=== PATIENT | female | born 1945 | race Caucasian/White ===

== ENCOUNTER 2019-05-31 09:10 | Outpatient (CLI) | payer MEDICARE, SELFPAY ==
[2019-05-31 17:24] LABS: Add Urine Microscopic? YES; Appearance Urine Clear (Clear); Bilirubin Urine Negative (Negative); Blood Urine Negative (Negative); Color Urine Yellow (Yellow); Glucose Urine UA Negative (Negative); Ketones Urine Negative (Negative); Leukocyte Esterase Ur 1+ LEU/UL (NEGATIVE); Mucus Urine Rare /lpf; Nitrate Urine Negative (Negative); Protein Urine Negative (Negative); RBC Urine 0-2 /hpf (0-2); Specific Grav Ur 1.013 (1.001-1.035); Squamous Epithelial Cell Urine Moderate /hpf (Few); Urobilinogen Urine Negative mg/dL (<2.0); WBC Urine 0-3 /hpf (0-3)
[2019-05-31 17:29] LABS: Alanine Aminotransferase 24 U/L (4-35); Albumin Level 4.1 g/dL (3.5-5.1); Alkaline Phosphatase 68 U/L (38-126); Aspartate Amino Transferase 29 U/L (14-36); Bilirubin,Total 0.8 mg/dL (0.2-1.3); Blood Urea Nitrogen 14 mg/dL (7-17); Calcium 9.6 mg/dL (8.4-10.2); Carbon Dioxide 24 mmol/L (22-30); Chloride 102 mmol/L (98-107); Cholesterol 171 mg/dL (0-200); Estimated Glomerular Filt Rate 54; Glucose 103 mg/dL (65-105); HDL Direct 54 mg/dL; Magnesium 2.1 mg/dL (1.6-2.3); Phosphorus 3.3 mg/dL (2.5-4.5); Potassium 4.1 mmol/L (3.4-5.0); Sodium 137 mmol/L (137-145); Triglycerides 143 mg/dL (<150)
[2019-05-31 17:40] LABS: LDL Cholesterol Direct 90 mg/dL
[2019-05-31 17:57] LABS: Microalbumin Urine Random 7.3 mg/L (0-16.7)
[2019-05-31 17:59] LABS: Creatinine Urine 166.6 mg/dL; MALB Creatinine Ratio 4.4 mg/g (0-30)
[2019-05-31 18:16] LABS: Hemoglobin A1C 5.9 % (<5.7)
[2019-06-02 21:43] LABS: SS-A <1.0; SS-B <1.0
[2019-06-03 08:44] LABS: RNP Antibodies <1.0
== END 2019-05-31 09:11 | disposition home or self-care (01) ==
PROVIDERS: PCP Family Medicine; Visit Provider Internal Medicine Nephrology
DX: E78.5 Hyperlipidemia, unspecified (principal); N39.0 Urinary tract infection, site not specified; E11.9 Type 2 diabetes mellitus without complications; E55.9 Vitamin D deficiency, unspecified; N18.3 Chronic kidney disease, stage 3 (moderate); M19.90 Unspecified osteoarthritis, unspecified site; Z99.11 Dependence on respirator [ventilator] status
CPT/HCPCS: 36415; 80053; 80061; 81001; 82043; 82306; 83036; 83735; 84100; 86235

== ENCOUNTER 2020-11-13 10:10 | Outpatient (CLI) | payer MEDICARE, SELFPAY ==
--- NOTE | ~2020-11-13 | XR_ITS ---
XR chest 2V 11/13/2020 10:23 Indication: Shortness of breath with exertion. Procedure: 2 view chest Comparison: 07/31/2018 Findings: Basilar atelectasis. Elevated right diaphragm. There are cholecystectomy clips. No signific ant effusion, focal pneumonia or pneumothorax. Impression: 1: Chronic elevation of the right diaphragm with right basilar atelectasis. Reviewed, dictated and finalized at location A. Impression: 1: Chronic elevation of the right diaphragm with right basilar atelectasis.
== END 2020-11-13 10:11 | disposition home or self-care (01) ==
LOC: ANHIMG 10:12
PROVIDERS: PCP Family Medicine; Visit Provider Nurse Practitioner Family
DX: R06.02 Shortness of breath (principal); R91.8 Other nonspecific abnormal finding of lung field
CPT/HCPCS: 71046

== ENCOUNTER 2020-12-11 10:07 | Outpatient (CLI) | payer MEDICARE, OTHER, SELFPAY ==
--- NOTE | 2020-12-11 12:35 | WPDPFTINT ---
PFT Procedure Performed PFT Procedure Performed Spirometry with Pre/Post Bronchodilator Plethysmography (Lung Vol) Diffusing Cap (DLCO) Flow Vol Loop PFT Interpretation This is a pulmonary function test with pre and post-bronchodilator spirometry, plethysmography and diffusing capacity. The test was performed and results interpreted in accordance with the 2019 and 2005 ATS/ERS Task Force guidelines respectively using the Global Lung Function Initiative-2012 reference equations. Patient demonstrated good effort and cooperation. Reproducibility criteria were met. The quality of the pre bronchodilator spirometry maneuver was Grade A and post bronchodilator spirometry maneuver was Grade A. Findings: Spirometry:The contour of the inspiratory and expiratory flow tracing are normal. The pre bronchodilator FVC is 2.43 L, 92% predicted. The pre bronchodilator FEV1 is 1.89 L, 93% predicted. The FEV1: FVC ratio 78%. The post bronchodilator FVC is 2.45 L, representing 1% increase. The post bronchodilator FEV1 is 1.92 L, representing 1% increased. Plethysmography: The total lung capacity is 3.99 L, 79% predicted. The functional residual capacity is 1.93 L, 66% predicted. The residual volume is 1.56 L, 67% predicted. Diffusing capacity: The absolute diffusion capacity is 16.2, 82% predicted. The diffusing capacity corrected for alveolar volume is 4.72, 113% predicted. Impression: There is a mild restrictive ventilatory abnormality with a normal FEV1. The spirometry is normal without evidence of an obstructive abnormality. There is no significant improvement after inhaling a single dose of albuterol. The diffusing capacity is normal. There are no prior studies for comparison
--- NOTE | 2020-12-11 12:40 | WPDSIXMINUTE ---
Six Minute Walk Procedure Procedure Performed Pulmonary Stress Test (6 min walk) Six Minute Walk This is a 6 minute walk test. The test was performed and interpreted in accordance with the 2014 ERS/ATS task force guidelines. Findings: The patient's resting room air oxygen saturation measured by pulse oximetry was 98% and her heart rate was 91 bpm. Patient ambulated for 427 meters and oxygen saturation remained 94 to 100%. Heart rate at the end of the study was 116 bpm. The patient did not qualify for supplemental oxygen at rest or with ambulation. There are no prior studies for comparison.
== END 2020-12-11 10:08 | disposition home or self-care (01) ==
PROVIDERS: PCP Family Medicine; Visit Provider Nurse Practitioner Family
DX: R06.02 Shortness of breath (principal); R94.2 Abnormal results of pulmonary function studies
CPT/HCPCS: 94060; 94618; 94726; 94729

== ENCOUNTER 2021-01-23 08:27 | Outpatient (CLI) | payer MEDICARE, OTHER, SELFPAY ==
[2021-01-23 19:48] LABS: Hematocrit 44.6 % (37.0-47.0); Hemoglobin 13.9 g/dL (12.0-15.0); Mean Corpuscular HGB Conc 31.2 g/dl (32-36); Mean Corpuscular Hemoglobin 30.6 pg (26-34); Mean Corpuscular Volume 98.2 fl (80-100); Mean Platelet Volume 11.3 fl (7.4-10.4); Platelet Count Result 252 k/mm3 (150-375); Red Blood Count 4.54 M/mm3 (4.2-5.4); Red Cell Distribution Width 14.2 % (11.5-14.5); White Blood Count 4.9 K/mm3 (4.5-10.0)
[2021-01-23 20:21] LABS: Alanine Aminotransferase 18 U/L (4-35); Albumin Level 4.8 g/dL (3.5-5.1); Alkaline Phosphatase 79 U/L (38-126); Anion Gap 10 mmol/L (8-16); Aspartate Amino Transferase 29 U/L (14-36); Bilirubin,Total 0.8 mg/dL (0.2-1.3); Blood Urea Nitrogen 13 mg/dL (7-17); Calcium 10.2 mg/dL (8.4-10.2); Carbon Dioxide 27 mmol/L (22-30); Chloride 106 mmol/L (98-107); Estimated Glomerular Filt Rate 54; Glucose 144 mg/dL (65-110); Potassium 4.8 mmol/L (3.4-5.0); Sodium 143 mmol/L (137-145)
[2021-01-23 20:24] LABS: Cholesterol 236 mg/dL (0-200); HDL Direct 65 mg/dL; Triglycerides 166 mg/dL (<150)
[2021-01-23 20:28] LABS: Vitamin D 25 Hydroxy 56.5 ng/mL
[2021-01-23 20:34] LABS: LDL Cholesterol Direct 111 mg/dL
== END 2021-01-23 08:28 | disposition home or self-care (01) ==
PROVIDERS: Family Medicine; PCP Family Medicine; Visit Provider Family Medicine
DX: G47.33 Obstructive sleep apnea (adult) (pediatric) (principal); J45.909 Unspecified asthma, uncomplicated; M19.90 Unspecified osteoarthritis, unspecified site; R79.89 Other specified abnormal findings of blood chemistry; Z79.899 Other long term (current) drug therapy; F32.9 Major depressive disorder, single episode, unspecified; N18.30 Chronic kidney disease, stage 3 unspecified; I12.9 Hypertensive chronic kidney disease with stage 1 through stage 4 chronic kidney disease, or unspecified chronic kidney disease
CPT/HCPCS: 36415; 80053; 80061; 82306; 84443; 85027

== ENCOUNTER 2021-02-02 19:23 | Emergency (ER) | payer MEDICARE, OTHER, SELFPAY ==
--- NOTE | ~2021-02-02 | XR_ITS ---
EXAMINATION: XR chest 2V DATE: 02/02/2021 19:40 INDICATION: Cough and shortness of breath. TECHNIQUE: Frontal and lateral views of the chest were obtained. COMPARISON: Chest 2 views 11/13/2020 FINDINGS: There is chronic elevation of right hemidiaphragm. There are mild airspace opacities in the mid and lower lung zones. No pleural effusion or pneumothorax. The heart size is normal. Surgical cl ips in the right upper quadrant are likely from cholecystectomy. IMPRESSION: 1. Mild airspace opacities in the mid and lower lung zones, consistent with atelectasis versus pneumo ronaldo. Reviewed, dictated and finalized at location A. IMPRESSION: 1. Mild airspace opacities in the mid and lower lung zones, consistent with ate lectasis versus pneumonia.
[2021-02-02 19:25] VITALS: BP 131/76; PULSE 105; RESP 26; TEMP 37.7; O2SAT 96
--- NOTE | 2021-02-02 19:27 | ED.SOB ---
HPI - SOB/Dyspnea General Chief Complaint: Upper Respiratory Infection Stated Complaint: Shortness of Breath Time Seen by Provider: 02/02/21 19:28 Source: patient, family and RN notes reviewed History of Present Illness HPI Narrative: Patient is a 75-year-old female who presents the urgent care with a family member with complaints of shortness of breath and cough. Patient states that she was out in the dust last Wednesday and that is when her symptoms started. Patient states that she does not have the Covid vaccine and has not had Covid. States that no one else in the home has been sick. States that she has a chronic asthma and uses her nebulizer machine twice a day per directed by her powder and primer canning leader. Denies any history of COPD. Patient is not a smoker. States that the cough and shortness of breath have gotten worse over the last week. Patient has not followed up with her PCP. States that her last nebulizer treatment was just a couple hours prior to arrival. Denies any fever, nausea, vomiting, chest pain. No other acute complaints. Patient dyspneic with conversation. Patient aware of the plan of care. Some parts of this dictation were generated by voice recognition software and may contain typographical and/or grammatical inaccuracies. Related Data Home Medications Medication Instructions Recorded Confirmed amlodipine 5 mg PO DAILY 02/02/21 02/02/21 budesonide 0.5 mg INHALATION BID 02/02/21 02/02/21 famotidine 20 mg PO DAILY 02/02/21 02/02/21 montelukast 10 mg PO DAILY 02/02/21 02/02/21 Allergies Allergy/AdvReac Type Severity Reaction Status Date / Time No Known Allergies Allergy Verified 02/02/21 19:49 Review of Systems Review of Systems: CONSTITUTIONAL: Denies fever, chills, or sweats. EYES: Denies visual changes, redness, or discharge. ENT: Denies rhinorrhea, congestion, sore throat, or otalgia. CARDIOVASCULAR: Denies chest pain, palpitations, or edema. RESPIRATORY: Reports of harsh nonproductive cough with dyspnea GASTROINTESTINAL: Denies abdominal pain, nausea, vomiting, or diarrhea. GENITOURINARY: Denies dysuria or hematuria. SKIN: Denies rash or itching. MUSCULOSKELETAL: Denies back pain, joint pain, or myalgia. NEUROLOGIC: Denies headache, numbness, or weakness. All other systems reviewed are negative, except as documented in HPI. PMFSH Comments At the time of my signature, I reviewed and agree with the nursing past medical, surgical, social, and family history. There is no relevant family history pertinent to the patient complaint. Exam Narrative: GENERAL: This is a well-nourished, well-developed patient, in no apparent distress. HEAD: normocephalic, atraumatic. EYES: PERRL. Sclera clear/white. Vision is grossly intact. EARS: External ears normal, auditory canals clear and without drainage, TMs normal without perforation. Hearing grossly intact. NOSE: External nose normal with no obvious nasal discharge, nares without redness, no rhinorrhea. THROAT: Mucous membranes moist, moderate postnasal drainage NECK: Neck supple CARDIOVASCULAR: Regular rate and rhythm without murmurs, gallops, or rubs. RESPIRATORY: Clear to auscultation. Slight expiratory wheeze to left lower lobe and diminished. Diminished right upper lobe SKIN: warm, intact with no suspicious lesions or rash, good texture and turgor. NEURO: awake, alert, and oriented to person, place and time. There were no obvious focal neurologic abnormalities. EXTREMITIES: No clubbing, cyanosis, or edema. Course Vital Signs Vital signs: Vital Signs Temperature 100 F H 02/02/21 19:25 Pulse Rate 105 H 02/02/21 19:25 Respiratory Rate 26 H 02/02/21 19:25 Blood Pressure 131/76 02/02/21 19:25 Pulse Oximetry 96 02/02/21 19:25 Temperature 100 F H 02/02/21 19:25 Pulse Rate 105 H 02/02/21 19:25 Respiratory Rate 26 H 02/02/21 19:25 Blood Pressure 131/76 02/02/21 19:25 Pulse Oximetry 96 02/02/21 19:25 Reviewed MDM - SOB/Dyspnea
[2021-02-02] MEDS: predniSONE 20 MG TABLET 60 MG PO (19:59)
[2021-02-02 20:20] VITALS: PULSE 100; RESP 24; O2SAT 96
== END 2021-02-02 20:20 | disposition home or self-care (01) ==
PROVIDERS: Emergency Provider Nurse Practitioner Family; PCP Family Medicine
DX: U07.1 COVID-19 (principal); J45.909 Unspecified asthma, uncomplicated; G47.30 Sleep apnea, unspecified; M19.90 Unspecified osteoarthritis, unspecified site; H26.9 Unspecified cataract
CPT/HCPCS: 71046; 87426; 99213; C9803; G0463; J7512

== ENCOUNTER → 2021-03-08 00:18 | Outpatient (CLI) | payer MEDICARE, OTHER, SELFPAY ==
[2021-03-08 18:14] LABS: SARS-CoV-2 RNA PCR Positive
== END ==
PROVIDERS: PCP Family Medicine; Visit Provider Internal Medicine Gastroenterology
DX: U07.1 COVID-19 (principal)
CPT/HCPCS: C9803; U0003; U0005

== ENCOUNTER 2021-03-11 01:29 | Day surgery (SDC) | payer MEDICARE, OTHER, SELFPAY ==
[2021-02-27 10:26] VITALS: BMI 34.4
[2021-03-11 09:36] VITALS: BP 137/97; PULSE 116; RESP 18; TEMP 36.2; O2SAT 94; BMI 33.0
--- NOTE | 2021-03-11 09:36 | P.PNAN_ITS ---
Anes - Initial Pre Proc Eval Procedure: Operation Date: 03/11/21 11:00 Proposed Procedures p Colonoscopy - Richard Arteaga MD Date/Time: 03/11/21 09:36 Surgeon: Richard Arteaga MD Pre Op Diagnosis: positive cologuard Patient Data Age: 75 Gender: F Height: 1.63 m Weight: 91 kg Allergies Allergy/AdvReac Type Severity Reaction Status Date / Time No Known Allergies Allergy Verified 03/11/21 09:35 Home Medications Medication Instructions Recorded Confirmed Type amlodipine 5 mg tablet 5 mg PO DAILY #90 tablet 01/22/21 03/11/21 Rx cholecalciferol (vitamin D3) 50 50 mcg PO DAILY #90 cap 01/22/21 03/11/21 Rx mcg (2,000 unit) capsule famotidine 20 mg tablet 20 mg PO BID #180 tablet 01/22/21 03/11/21 Rx montelukast 10 mg tablet 10 mg PO DAILY #90 tablet 01/22/21 03/11/21 Rx albuterol sulfate 2 puff INHALATION QID PRN #8 gm 02/02/21 03/11/21 Rx budesonide 0.5 mg INHALATION BID 02/02/21 03/11/21 History Patient hx anesthesia problems: none Family hx anesthesia problems: none Results Review: All pre-operative results and documents have been reviewed as part of the pre-operative evaluation. [facility] Past Medical History Medical History Chronic GERD Elevated cholesterol Epigastric abdominal pain Hyperglycemia Intermittent asthma BLAYNE (obstructive sleep apnea) Surgical History Surgical History History of bladder surgery History of vaginal hysterectomy Hx of cholecystectomy Family History Family History Mother Heart disease Grandparent Diabetes mellitus Social History Social History Smoking status: Never smoker Second hand tobacco smoke exposure: No Alcohol intake: never Living arrangements: with family Spiritual care concerns: No Anes - Eval Final PreProcedure Day of Procedure 03/11/21 09:36 Patient weight: obese Heart: regular rate and rhythm Lungs: clear to auscultation Airway: Mallampati scale class II Neurological: alert and oriented Last oral intake: >/= 8 hours ASA classification: III Emergent: no Anesthetic plan: proceed Anesthesia type and monitoring: general GIVS and standard monitoring Results Review: All pre-operative results and documents have been reviewed as part of the pre-operative evaluation. Informed Consent: The patient's anesthetic plan and its attendant risks and benefits were discussed with the patient/family/POA. Questions were solicited and answers provided to the satisfaction of the patient/family/POA.
--- NOTE | 2021-03-11 09:42 | PM.HPGS ---
History of Present Illness History of Present Illness Consent: Risks, benefits, and alternatives have been discussed and questions answered. Patient agrees to proceed with procedure. Chief complaint: positive cologuard Narrative: Edel Suggs is a 75 year old female with last colonoscopy 10 years ago but had recent positive cologuard Review of Systems Constitutional: Constitutional: Denies headache(s) and Denies weakness Eyes: Eyes: Denies blurry vision ENT: Reports Normal hearing present, Denies headache(s) and Denies neck pain Cardiovascular: Cardiovascular: Denies chest pain and Denies dyspnea Respiratory: Respiratory: Denies dyspnea Gastrointestinal: Gastrointestinal: Reports no additional gastrointestinal complaints Genitourinary: Genitourinary: Denies dysuria Musculoskeletal: Musculoskeletal: Denies neck pain Integumentary/Breasts: Skin/Breast: Denies dry skin Neurologic: Reports Normal hearing present, Denies headache(s) and Denies weakness Psychiatric: Psychiatric: Denies anxiety Endocrine: Endocrine: Denies change in body appearance Hematologic/Lymphatic: Hematologic/Lymphatic: Denies easy bleeding Allergic/Immunologic: Allergic/Immunologic: Denies urticaria PMFSH Past Medical History Medical History Chronic GERD Elevated cholesterol Epigastric abdominal pain Hyperglycemia Intermittent asthma BLAYNE (obstructive sleep apnea) Surgical History Surgical History History of bladder surgery History of vaginal hysterectomy Hx of cholecystectomy Family History Family History Mother Heart disease Grandparent Diabetes mellitus Social History Social History Smoking status: Never smoker Second hand tobacco smoke exposure: No Alcohol intake: never Living arrangements: with family Spiritual care concerns: No Meds Home Medications and Allergies Home Medications Medication Instructions Recorded Confirmed Type amlodipine 5 mg tablet 5 mg PO DAILY #90 tablet 01/22/21 03/11/21 Rx cholecalciferol (vitamin D3) 50 50 mcg PO DAILY #90 cap 01/22/21 03/11/21 Rx mcg (2,000 unit) capsule famotidine 20 mg tablet 20 mg PO BID #180 tablet 01/22/21 03/11/21 Rx montelukast 10 mg tablet 10 mg PO DAILY #90 tablet 01/22/21 03/11/21 Rx albuterol sulfate 2 puff INHALATION QID PRN #8 gm 02/02/21 03/11/21 Rx budesonide 0.5 mg INHALATION BID 02/02/21 03/11/21 History Allergies Allergy/AdvReac Type Severity Reaction Status Date / Time No Known Allergies Allergy Verified 03/11/21 09:35 Vital Signs Vital Signs - 24 hr 03/11/21 09:36 Temperature 97.2 F L Pulse Rate 116 H Respiratory Rate 18 Blood Pressure 137/97 H Pulse Oximetry 94 Exam Const: General: comfortable and no acute distress HENMT: General nose exam: Normal nares present Eyes: General: appearance normal, both eyes and all related structures Neck: Neck: no JVD Resp: Auscultation: clear to auscultation bilaterally Cardio: Rate: regular rate Rhythm: regular rhythm GI: Inspection: non-distended GI Palp: Yes Soft to palpation Skin: General skin exam: normal color Neuro: General: gait normal Speech: normal speech Extrem: General: normal to inspection Psych: Mental Status: mental status grossly normal Assessment and Plan Assessment and plan (1) Positive colorectal cancer screening using Cologuard test: Code(s): R19.5 - Other fecal abnormalities Status: Acute Assessment and Plan: colonoscopy
[2021-03-11] MEDS: LACTATED RINGERS 1,000 ML 150 ML IV CONT (09:47)
[2021-03-11 10:15] VITALS: BP 115/73; PULSE 77; RESP 22; O2SAT 94
--- NOTE | 2021-03-11 10:16 | SUR.OPER ---
CECAL COLON POLYP AND ASCENDING COLON POLYP SPECIMEN NOT RETRIEVED. DR SHEETS AWARE. NO FURTHER INSTRUCTIONS GIVEN.
[2021-03-11 10:25] VITALS: BP 114/74; PULSE 75; RESP 19; O2SAT 96
[2021-03-11 10:35] VITALS: BP 122/75; PULSE 67; RESP 21; O2SAT 98
== END 2021-03-11 10:40 | disposition home or self-care (01) ==
PROVIDERS: PCP Family Medicine; Visit Provider Internal Medicine Gastroenterology
PROC: 0DJD8ZZ Inspection of Lower Intestinal Tract, Via Natural or Artificial Opening Endoscopic (ICD-10-PCS; CPT 45378; principal; 2021-03-11 11:00)
DX: R19.5 Other fecal abnormalities (principal); K21.9 Gastro-esophageal reflux disease without esophagitis; J45.909 Unspecified asthma, uncomplicated; G47.33 Obstructive sleep apnea (adult) (pediatric); R73.9 Hyperglycemia, unspecified; Z90.49 Acquired absence of other specified parts of digestive tract; K57.30 Diverticulosis of large intestine without perforation or abscess without bleeding; D12.5 Benign neoplasm of sigmoid colon
CPT/HCPCS: 45385; 88305; J2704; J7120

== ENCOUNTER 2021-06-02 09:18 | Outpatient (CLI) | payer MEDICARE, OTHER, SELFPAY ==
[2021-06-02 19:37] LABS: Albumin Level 4.3 g/dL (3.5-5.1); Anion Gap 8 mmol/L (8-16); Blood Urea Nitrogen 16 mg/dL (7-17); Calcium 9.6 mg/dL (8.4-10.2); Carbon Dioxide 26 mmol/L (22-30); Chloride 107 mmol/L (98-107); Estimated Glomerular Filt Rate 54; Glucose 103 mg/dL (65-110); Magnesium 2.1 mg/dL (1.6-2.3); Potassium 4.6 mmol/L (3.4-5.0); Sodium 141 mmol/L (137-145)
[2021-06-02 19:43] LABS: Total Protein Urine Random 14 mg/dL; Ur Ttl Prot Creatinine Ratio 0.19 mg/mg (0-0.20)
[2021-06-02 19:44] LABS: Creatinine Urine 71.7 mg/dL
[2021-06-02 19:48] LABS: MALB Creatinine Ratio 15.6 mg/g (0-30); Microalbumin Urine Random 11.2 mg/L (0-16.7)
[2021-06-02 19:56] LABS: Vitamin D 25 Hydroxy 46.2 ng/mL
[2021-06-02 20:40] LABS: Add Urine Microscopic? YES; Appearance Urine Cloudy (Clear); Bilirubin Urine Negative (Negative); Blood Urine Negative (Negative); Color Urine Yellow (Yellow); Glucose Urine UA Negative (Negative); Ketones Urine Negative (Negative); Leukocyte Esterase Ur Negative LEU/UL (Negative); Mucus Urine Rare /lpf; Nitrate Urine Negative (Negative); Protein Urine Negative (Negative); RBC Urine 0-2 /hpf (0-2); Specific Grav Ur 1.011 (1.001-1.035); Squamous Epithelial Cell Urine Occasional /hpf (Few); Urobilinogen Urine Negative mg/dL (<2.0); WBC Urine 0-3 /hpf
== END 2021-06-02 09:19 | disposition home or self-care (01) ==
PROVIDERS: PCP Family Medicine; Visit Provider Internal Medicine Nephrology
DX: E78.5 Hyperlipidemia, unspecified (principal); M19.90 Unspecified osteoarthritis, unspecified site; Z99.11 Dependence on respirator [ventilator] status; E55.9 Vitamin D deficiency, unspecified; I12.9 Hypertensive chronic kidney disease with stage 1 through stage 4 chronic kidney disease, or unspecified chronic kidney disease; N18.30 Chronic kidney disease, stage 3 unspecified; N39.0 Urinary tract infection, site not specified
CPT/HCPCS: 36415; 80069; 81001; 82043; 82306; 82570; 83735; 84156

== ENCOUNTER 2021-07-21 10:28 | Outpatient (CLI) | payer MEDICARE, OTHER, SELFPAY ==
--- NOTE | ~2021-07-21 | XR_ITS ---
EXAMINATION: XR wrist RT min 3V, XR wrist LT min 3V DATE: 07/21/2021 11:06 INDICATION: Generalized joint pain at the bilateral wrists TECHNIQUE: 1. Posteroanterior, ulnar deviation, oblique, and lateral views of the left wrist were obtained. 2. Posteroanterior, ulnar deviation, oblique, and lateral views of the right wrist were obtained. COMPARISON: none FINDINGS: Right wrist: Alignment is normal. No fracture. Mild polyarticular osteoarthritis at the triscaphe, first carpometa carpal, first and third metacarpophalangeal and first interphalangeal joints. No erosions to suggest an inflammatory arthritis. Diffuse osteopenia. Soft tissues are unremarkable. Left wrist: No fracture. There is asymmetric slight widening of the left scapholunate interval suspicious for at least partial tear of the left scapholunate ligament. The carpal alignment remains otherwise within n ormal limits with no definitive dorsal intercalated segment instability (DISI). Mild osteoarthritis a t the distal radioulnar, triscaphe and first carpal metacarpal and first metacarpophalangeal and inte rphalangeal joints. There is also atypical mild osteoarthritis radioscaphoid and lunocapitate articul ations which could be seen with early scapholunate advanced collapse (SLAC) wrist. No erosions. Diffu se osteopenia. Soft tissues are unremarkable. IMPRESSION: 1. 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 On the left this in cludes at the radioscaphoid and lunocapitate articulations which along with the asymmetric mild widen ing of the left scapholunate interval suggests at least partial tear of the scapholunate ligament and secondary scapholunate advanced collapse (SLAC) wrist. Reviewed, dictated and finalized at location B. IMPRESSION: 1. Mild polyarticular osteoarthritis at the bilateral wrists and visualized avalos d. On the left this includes at the radioscaphoid and lunocapitate articulation s which along with the asymmetric mild widening of the left scapholunate interv al suggests at least partial tear of the scapholunate ligament and secondary sc apholunate advanced collapse (SLAC) wrist.
--- NOTE | ~2021-07-21 | XR_ITS ---
EXAMINATION: XR shoulder RT min 2V DATE: 07/21/2021 11:05 INDICATION: Generalized right shoulder pain TECHNIQUE: AP internally and externally rotated, AP oblique externally rotated and transscapular Y vi ews of the right shoulder were obtained. COMPARISON: None FINDINGS: Normal alignment. No fracture. Mild glenohumeral and acromioclavicular osteoarthritis. Soft tissues are unremarkable. IMPRESSION: Mild right glenohumeral and acromioclavicular osteoarthritis. Reviewed, dictated and finalized at location B.
[2021-07-21 19:00] LABS: Hematocrit 44.2 % (37.0-47.0); Hemoglobin 14.4 g/dL (12.0-15.0); Mean Corpuscular HGB Conc 32.6 g/dl (32-36); Mean Corpuscular Hemoglobin 29.4 pg (26-34); Mean Corpuscular Volume 90.2 fl (80-100); Platelet Count Result 294 k/mm3 (150-375); Red Cell Distribution Width 14.6 % (11.5-14.5); White Blood Count 5.9 K/mm3 (4.5-10.0)
[2021-07-21 19:08] LABS: Rheumatoid Factor < 8.6 IU/ML (<12)
[2021-07-21 19:13] LABS: Alanine Aminotransferase 17 U/L (4-35); Albumin Level 4.5 g/dL (3.5-5.1); Alkaline Phosphatase 99 U/L (38-126); Anion Gap 8 mmol/L (8-16); Aspartate Amino Transferase 28 U/L (14-36); Bilirubin,Total 0.8 mg/dL (0.2-1.3); Blood Urea Nitrogen 18 mg/dL (7-17); Calcium 10.1 mg/dL (8.4-10.2); Carbon Dioxide 25 mmol/L (22-30); Chloride 106 mmol/L (98-107); Estimated Glomerular Filt Rate 48; Glucose 106 mg/dL (65-110); Sodium 139 mmol/L (137-145)
[2021-07-21 20:18] LABS: Vitamin D 25 Hydroxy 69.4 ng/mL
[2021-07-24 20:25] LABS: ANA Cascade Screen Negative (Negative)
[2021-07-26 01:18] LABS: Anti Cyclic Citrullinated Pept <16 Units (<20)
[2021-07-26 19:06] LABS: Anti Nuclear Antibody Titer 1:40 (Negative)
== END 2021-07-21 10:29 | disposition home or self-care (01) ==
PROVIDERS: PCP Family Medicine; Visit Provider Family Medicine
DX: M25.539 Pain in unspecified wrist (principal); M25.519 Pain in unspecified shoulder; M25.50 Pain in unspecified joint; J30.2 Other seasonal allergic rhinitis; E78.5 Hyperlipidemia, unspecified; N18.30 Chronic kidney disease, stage 3 unspecified; E66.9 Obesity, unspecified; R79.89 Other specified abnormal findings of blood chemistry
CPT/HCPCS: 36415; 73030; 73110; 80053; 82306; 85027; 86038; 86039; 86200; 86430

== ENCOUNTER 2021-12-10 09:29 | Outpatient (CLI) | payer MEDICARE, OTHER, SELFPAY ==
--- NOTE | ~2021-12-10 | XR_ITS ---
EXAMINATION:XR cervical spine 4-5V DATE: 12/10/2021 09:55 INDICATION: Neck pain TECHNIQUE: AP, lateral, bilateral oblique, lateral swimmers and odontoid views of the cervical spine are provided. COMPARISON: None FINDINGS: Bone alignment is normal. The odontoid is intact. No fracture is identified. The vertebral body heights are normal. There is mild loss of intervertebral disc space height at C5-6. Prevertebral soft tissues are normal. There is moderate neuroforaminal stenosis at C4-5 and C5-6. There is modera te to severe multilevel facet and uncovertebral joint osteoarthritis. IMPRESSION: 1. Mild to moderate cervical spondylosis without acute findings or significant interval change. Reviewed, dictated and finalized at location B.
[2021-12-10 20:11] LABS: Alanine Aminotransferase 15 U/L (6-35); Albumin Level 4.4 g/dL (3.5-5.1); Alkaline Phosphatase 86 U/L (38-126); Anion Gap 9 mmol/L (8-16); Aspartate Amino Transferase 46 U/L (14-36); Bilirubin,Total 0.8 mg/dL (0.2-1.3); Blood Urea Nitrogen 13 mg/dL (7-17); Calcium 9.8 mg/dL (8.4-10.2); Carbon Dioxide 29 mmol/L (22-30); Chloride 100 mmol/L (98-107); Creatine Kinase 62 U/L (30-135); Estimated Glomerular Filt Rate 54; Glucose 100 mg/dL (65-110); Potassium 4.1 mmol/L (3.4-5.0); Sodium 138 mmol/L (137-145)
[2021-12-14 03:23] LABS: Aldolase 3.9 U/L (<=8.1)
== END 2021-12-10 09:30 | disposition home or self-care (01) ==
PROVIDERS: PCP Family Medicine; Visit Provider Internal Medicine
DX: M25.519 Pain in unspecified shoulder (principal); R76.8 Other specified abnormal immunological findings in serum; M19.90 Unspecified osteoarthritis, unspecified site; M47.892 Other spondylosis, cervical region
CPT/HCPCS: 36415; 72050; 80053; 82085; 82550

== ENCOUNTER 2022-02-02 09:25 | Outpatient (CLI) | payer MEDICARE, OTHER, SELFPAY ==
[2022-02-02 19:59] LABS: Alanine Aminotransferase 17 U/L (6-35); Albumin Level 4.5 g/dL (3.5-5.1); Alkaline Phosphatase 86 U/L (38-126); Aspartate Amino Transferase 25 U/L (14-36); Bilirubin,Total 0.8 mg/dL (0.2-1.3)
[2022-02-02 20:37] LABS: Hepatitis B Surface Antigen Negative (Negative)
[2022-02-02 20:42] LABS: HAV RESULT Negative (Negative); Hepatitis B Core IgM Result Negative (Negative)
[2022-02-02 20:54] LABS: Hepatitis C Virus Antibody Negative (Negative)
== END 2022-02-02 09:26 | disposition home or self-care (01) ==
LOC: ANHBWCLAB 09:27
PROVIDERS: PCP Family Medicine; Visit Provider Family Medicine
DX: R74.01 Elevation of levels of liver transaminase levels (principal)
CPT/HCPCS: 36415; 80074; 80076

== ENCOUNTER 2022-07-09 14:15 | Outpatient (CLI) | payer MEDICARE, OTHER, SELFPAY ==
--- NOTE | ~2022-07-09 | XR_ITS ---
XR shoulder LT min 2V DATE: 07/09/2022 14:40 INDICATION: Chronic left shoulder pain TECHNIQUE: 4 views COMPARISON: None FINDINGS: There is diffuse osteopenia. There is mild degenerative spurring of the left humeral head consistent with glenohumeral osteoarthri tis. No fracture or dislocation, periosteal reaction or bone destruction of the left shoulder. No abnormal left shoulder soft tissue calcification. IMPRESSION: Left glenohumeral osteoarthritis Osteopenia Reviewed, dictated and finalized at location A.
[2022-07-09 18:47] LABS: Rheumatoid Factor < 8.6 IU/ML (<12)
[2022-07-09 18:51] LABS: Erythrocyte Sedimentation Rate 12 mm/hr (0-20)
[2022-07-09 19:06] LABS: Creatine Kinase 52 U/L (30-135)
[2022-07-09 19:32] LABS: CRP < 0.5 mg/dL (<1.0)
[2022-07-13 12:07] LABS: Cyclic Citrullinated Peptide <16 Units (<20)
[2022-07-14 10:46] LABS: HLA B27 Negative (Negative)
== END 2022-07-09 14:16 | disposition home or self-care (01) ==
PROVIDERS: PCP Family Medicine; Visit Provider Internal Medicine
DX: M19.012 Primary osteoarthritis, left shoulder (principal); M85.812 Other specified disorders of bone density and structure, left shoulder; M25.50 Pain in unspecified joint; L60.8 Other nail disorders; M54.50 Low back pain, unspecified; M45.6 Ankylosing spondylitis lumbar region
CPT/HCPCS: 36415; 73030; 82550; 85652; 86140; 86430; 86812

== ENCOUNTER 2022-08-04 11:18 | Outpatient (CLI) | payer MEDICARE, OTHER, SELFPAY ==
[2022-08-04 18:25] LABS: Eosinophils Absolute Auto 0.1 K/mm3 (0-0.3); Eosinophils Percent Auto 3.6 % (0-4.4); Hematocrit 41.9 % (37.0-47.0); Hemoglobin 13.2 g/dL (12.0-15.0); Immature Granulocyte Absolute 0.01 K/mm3 (0.00-0.031); Immature Granulocyte Percent A 0.3 % (0-0.5); Lymphocytes Absolute Auto 1.82 K/mm3 (0.9-3.2); Lymphocytes Percent Auto 46.2 % (18.3-44.2); Mean Corpuscular HGB Conc 31.5 g/dl (32-36); Mean Corpuscular Hemoglobin 29.8 pg (26-34); Mean Corpuscular Volume 94.6 fl (80-100); Monocytes Absolute Auto 0.5 K/mm3 (0.1-0.6); Monocytes Percent Auto 11.7 % (2.6-8.5); Neutrophils Absolute Auto 1.5 K/mm3 (1.3-6.7); Neutrophils Percent Auto 37.2 % (45.5-73.1); Platelet Count Result 235 k/mm3 (150-375); Red Blood Count 4.43 M/mm3 (4.2-5.4); Red Cell Distribution Width 14.7 % (11.5-14.5); White Blood Count 3.9 K/mm3 (4.5-10.0)
[2022-08-04 19:12] LABS: Alanine Aminotransferase 22 U/L (6-35); Albumin Level 4.5 g/dL (3.5-5.1); Alkaline Phosphatase 79 U/L (38-126); Anion Gap 9 mmol/L (8-16); Aspartate Amino Transferase 38 U/L (14-36); Bilirubin,Total 0.7 mg/dL (0.2-1.3); Blood Urea Nitrogen 14 mg/dL (7-17); Calcium 9.7 mg/dL (8.4-10.2); Carbon Dioxide 28 mmol/L (22-30); Chloride 102 mmol/L (98-107); Cholesterol 203 mg/dL (0-200); Estimated Glomerular Filt Rate > 60; Glucose 109 mg/dL (65-110); HDL Direct 53 mg/dL; Sodium 139 mmol/L (137-145); Triglycerides 159 mg/dL (<150)
[2022-08-04 19:22] LABS: LDL Cholesterol Direct 100 mg/dL
== END 2022-08-04 11:19 | disposition home or self-care (01) ==
PROVIDERS: PCP Family Medicine; Visit Provider Family Medicine
DX: E78.5 Hyperlipidemia, unspecified (principal); F32.9 Major depressive disorder, single episode, unspecified; M85.80 Other specified disorders of bone density and structure, unspecified site; E66.9 Obesity, unspecified; N18.30 Chronic kidney disease, stage 3 unspecified; R79.89 Other specified abnormal findings of blood chemistry; G47.33 Obstructive sleep apnea (adult) (pediatric); J45.909 Unspecified asthma, uncomplicated
CPT/HCPCS: 36415; 80053; 80061; 85025

== ENCOUNTER 2022-11-04 10:42 | Outpatient (CLI) | payer MEDICARE, OTHER, SELFPAY ==
[2022-11-04 19:24] LABS: Basophils Absolute Auto 0.1 K/mm3 (0.0-0.1); Basophils Percent Auto 1.4 % (0.2-1.2); Eosinophils Absolute Auto 0.1 K/mm3 (0-0.3); Eosinophils Percent Auto 1.9 % (0-4.4); Hematocrit 42.6 % (37.0-47.0); Hemoglobin 13.4 g/dL (12.0-15.0); Lymphocytes Absolute Auto 2.18 K/mm3 (0.9-3.2); Lymphocytes Percent Auto 42.2 % (18.3-44.2); Mean Corpuscular HGB Conc 31.5 g/dl (32-36); Mean Corpuscular Hemoglobin 29.4 pg (26-34); Mean Corpuscular Volume 93.4 fl (80-100); Mean Platelet Volume 11.3 fl (7.4-10.4); Monocytes Absolute Auto 0.5 K/mm3 (0.1-0.6); Monocytes Percent Auto 9.7 % (2.6-8.5); Neutrophils Absolute Auto 2.3 K/mm3 (1.3-6.7); Neutrophils Percent Auto 44.8 % (45.5-73.1); Platelet Count Result 253 k/mm3 (150-375); Red Blood Count 4.56 M/mm3 (4.2-5.4); Red Cell Distribution Width 13.7 % (11.5-14.5); White Blood Count 5.2 K/mm3 (4.5-10.0)
== END 2022-11-04 10:43 | disposition home or self-care (01) ==
PROVIDERS: PCP Family Medicine; Visit Provider Family Medicine
DX: J30.2 Other seasonal allergic rhinitis (principal)
CPT/HCPCS: 36415; 85025

== ENCOUNTER 2023-01-15 11:12 | Emergency (ER) | payer MEDICARE, OTHER, SELFPAY ==
[2023-01-15 11:15] VITALS: BP 149/93; PULSE 103; RESP 20; TEMP 36.2; O2SAT 100
--- NOTE | 2023-01-15 11:26 | ED.SOB ---
HPI - SOB/Dyspnea General Chief Complaint: Shortness of Breath/Dyspnea Stated Complaint: Shortness of Breath/Chest Pain Time Seen by Provider: 01/15/23 11:20 Source: patient Mode of arrival: ambulatory Limitations: no limitations History of Present Illness HPI Narrative: Edel Ridley is a 77-year-old female patient presenting to the clinic today with complaints shortness of breath, chest tightness/chest pain that began off and on yesterday however today has become more constant. She is unable to rate her pain for me at this time but states that the pain is not radiating anywhere. Does appear to be anxious. States she has felt more shaky today. Related Data Allergies Allergy/AdvReac Type Severity Reaction Status Date / Time No Known Allergies Allergy Verified 01/15/23 11:25 Review of Systems Review of Systems: Pertinent positives per HPI. Patient denies any fever, chills, rash, headache, visual changes, dizziness, cough, runny nose, sore throat, palpitations, nausea, vomiting, diarrhea, constipation, abdominal pain, or any urinary issues. [facility] Past Medical History Medical History Chronic GERD Elevated cholesterol Epigastric abdominal pain Generalized osteoarthritis of multiple sites Hyperglycemia Intermittent asthma BLAYNE (obstructive sleep apnea) Surgical History Surgical History History of bladder surgery History of vaginal hysterectomy Hx of cholecystectomy Family History Family History Mother Heart disease Grandparent Diabetes mellitus Social History Social History (Updated 08/03/22 @ 14:10 by Khushboo Davila MA) Smoking status: Never smoker Second hand tobacco smoke exposure: No Alcohol intake: never Lack of Transportation: No Lack of Food: Never True Current Housing: I Have Housing Concerned About Future Housing: No Difficulty Paying Gas/Electric Bills: No Difficulty Paying for Meds: No Currently Unemployed: No Education: High School Diploma/GED Difficulty w/ Childcare or Family Care: No Living arrangements: with family Occupation/Education: retired Gender identity (if verbalized by the patient): Female Spiritual care concerns: No Comments At the time of my signature, I reviewed and agree with the nursing past medical, surgical, social, and family history. There is no relevant family history pertinent to the patient complaint. Exam Narrative: General: Well-developed, obese, anxious appearing, hyperventilating Head: Normocephalic, atraumatic. Cardio: Sinus tachycardia, regular rate and rhythm, s1 and s2 normal, no murmur appreciated. Resp: Diminished breath sounds in the lower bases otherwise clear, no rhonchi, rales, wheezing or rubs. Extremities: No deformity, no edema, no cyanosis, capillary refill less than 2 seconds, peripheral pulses palpable and strong. Integumentary: [place], warm, and dry, intact without lesion, no rashes. Course Course Emergency Course: Portions of this record may have been created with voice recognition software. Level of Care: Express Care Visit Vital Signs Vital signs: Vital signs reviewed Transfer Transfered to: [facility] Transportation: ALS Transfer rationale: Chest pain/shortness of breath Accepting physician: Dr. Bullock Transfer comments: Transfer via ALS MDM - SOB/Dyspnea MDM Narrative Medical decision making narrative: At the time of visit patient is lying on the exam stretcher. Appears anxious ribs. Reports having midsternal chest pain, chest tightness, shortness of breath. EKG shows sinus tachycardia without ectopy. Heart rate is 100 beats per minute. Recommend transfer to the ER for further evaluation. COVID testing was negative. patient agrees to be transferred via EMS to [facility].
--- NOTE | 2023-01-15 11:30 | ECG_ITS ---
Measurements Intervals [place] Rate: 100 P: 39 VT: 157 QRS: -9 QRSD: 82 T: 30 QT: 326 QTc: 421 Interpretive Statements MOTION ARTIFACT/REDUCED QUALITY ECG SINUS TACHYCARDIA ABNORMAL RHYTHM ECG INTERPRETATION BASED ON A DEFAULT AGE OF 40 YEARS NO PREVIOUS ECG AVAILABLE FOR COMPARISON Electronically Signed On 01-18-2023 13:19:37 CDT by Kulwant Bell M.D.
[2023-01-15 11:41] VITALS: BP 149/93; PULSE 103; RESP 20; TEMP 36.2; O2SAT 100
== END 2023-01-15 11:25 | disposition short-term general hospital (02) ==
PROVIDERS: Emergency Provider Nurse Practitioner Family; PCP Family Medicine
DX: R06.02 Shortness of breath (principal); R07.9 Chest pain, unspecified; Z20.822 Contact with and (suspected) exposure to COVID-19
CPT/HCPCS: 87426; 93005; 99215; C9803; G0463

== ENCOUNTER 2023-02-25 09:47 | Outpatient (CLI) | payer MEDICARE, OTHER, SELFPAY ==
[2023-02-25 18:33] LABS: Anion Gap 6 mmol/L (8-16); Blood Urea Nitrogen 15 mg/dL (7-17); Calcium 10.2 mg/dL (8.4-10.2); Carbon Dioxide 31 mmol/L (22-30); Chloride 103 mmol/L (98-107); Estimated Glomerular Filt Rate 53; Glucose 94 mg/dL (65-110); Potassium 4.2 mmol/L (3.4-5.0); Sodium 140 mmol/L (137-145)
== END 2023-02-25 09:48 | disposition home or self-care (01) ==
PROVIDERS: PCP Family Medicine; Visit Provider Family Medicine
DX: E83.52 Hypercalcemia (principal)
CPT/HCPCS: 36415; 80048

== ENCOUNTER 2023-03-15 09:25 | Outpatient (CLI) | payer MEDICARE, OTHER, SELFPAY ==
--- NOTE | 2023-03-15 09:36 | ECHO_ITS ---
Patient Info Name: Edel Suggs Age: 77 years : 1945 Gender: Female Ht: 64 in Wt: 184 lbs BSA: 1.97 m2 BP: 131 / 97 mmHg Technical Quality: Fair Exam Date: 03/15/2023 9:38 AM Exam Location: Echo Lab Patient Status: Outpatient Admit Date: 03/15/2023 Staff Ordering Physician: Kushal Christine DO Forwarder Operator: Mimi Mc RDCS Attending Provider: Kushal Christine DO Referring Physician: Emmett WHITTEN; Exam Type: CA echo doppler color flow Study Info Indications R06.09 - Other forms of dyspnea Complete two-dimensional, color flow and Doppler transthoracic echocardiogram is performed. Summary 1. Complete two-dimensional, color flow and Doppler transthoracic echocardiogram is performed. 2. Left ventricular chamber dimension is normal. 3. Left ventricular systolic function is normal, estimated at 55-60%. 4. The left ventricular diastolic function is grade I diastolic dysfunction. 5. E/e' 11 is mildly elevated. 6. Left atrial chamber dimension is mildly enlarged. 7. The mitral valve has mildly calcified annulus. 8. There is trace mitral valve regurgitation. 9. There is trace tricuspid valve regurgitation. 10. No pulmonary hypertension, estimated pulmonary arterial systolic pressure is 31 mmHg. 11. Dilated inferior vena cava with >50% collapse upon inspiration consistent with normal right atrial pressure, 10 mmHg. Left Ventricle E/e' 11 is mildly elevated. Left ventricular chamber dimension is normal. Left ventricular systolic function is normal, estimated at 55-60%. The left ventricular diastolic function is grade I diastolic dysfunction. Right Ventricle Right ventricular chamber dimension is normal. Right ventricular systolic function is normal. Left Atria Left atrial chamber dimension is mildly enlarged. Right Atria Right atrial chamber dimension is normal. Aortic Valve The aortic valve is trileaflet. There is no aortic valve stenosis. There is no aortic valve regurgitation. Pulmonic Valve There is no pulmonic regurgitation. Mitral Valve The mitral valve has mildly calcified annulus. There is no mitral valve stenosis. There is trace mitral valve regurgitation. Tricuspid Valve There is trace tricuspid valve regurgitation. No pulmonary hypertension, estimated pulmonary arterial systolic pressure is 31 mmHg. Pericardium/Pleural There is no pericardial effusion. Inferior Vena Cava Dilated inferior vena cava with >50% collapse upon inspiration consistent with normal right atrial pressure, 10 mmHg. Aorta The aortic root size at the sinus of Valsalva is normal. Left Ventricular Outflow Tract Name Value Normal LVOT 2D LVOT Diameter 1.9 cm LVOT Doppler LVOT Peak Gradient 5 mmHg LVOT Mean Gradient 3 mmHg LVOT VTI 21 cm LVOT VTI/AV VTI Ratio 0.8 LVOT Stroke Volume 64 ml LVOT CO 5.8 l/min LVOT CI 2.9 l/min/m2 Pulmonic Valve Name Value Normal
== END 2023-03-15 09:26 | disposition home or self-care (01) ==
LOC: ANHCARD 09:27
PROVIDERS: PCP Family Medicine; Visit Provider Internal Medicine Cardiovascular Disease
DX: R06.09 Other forms of dyspnea (principal)
CPT/HCPCS: 93306

== ENCOUNTER 2023-05-07 10:40 | Outpatient (CLI) | payer MEDICARE, OTHER, SELFPAY ==
--- NOTE | ~2023-05-07 | DEXA_ITS ---
Bone Density Report Name: DENISA FAIRCHILD Age: 77 Sex: Female Ethnicity: White Date of : 1945 Indication: postmenopausal; screening for osteoporosis; height loss; asthma or emphysema; hysterectomy; Referring Provider: JF SAVAGE Study: Bone densitometry was performed. Exam Date: May 07, 2023 Accession number: [id number] Bone Density: Region BMD T-score Z-score Classification AP Spine(L1-L4) 0.842 -1.9 0.8 Osteopenia Femoral Neck (Left) 0.618 -2.1 0.2 Osteopenia Total Hip (Left) 0.742 -1.6 0.4 Osteopenia Femoral Neck (Right) 0.531 -2.9 -0.6 Osteoporosis Total Hip (Right) 0.709 -1.9 0.1 Osteopenia Total Hip Mean 0.726 -1.8 0.3 Osteopenia World Health Organization criteria for BMD impression classify patients as: Normal (T-score at or above -1.0), Osteopenia (T-score between -1.0 and -2.5), or Osteoporosis (T-score at or below -2.5). 10-year Fracture Risk: FRAX not reported because: Some T-score for Spine Total or Hip Total or Femoral Neck at or below -2.5 Clinical Information Provided by Patient: Has used the following medications: Vitamin D, Calcium Has the following medical conditions: Asthma or Emphysema, Hysterectomy Patient maximum height was 65.0 Menopause Age: 47 No regular weight bearing exercise Does not regularly consume dairy products Drinks caffeinated beverages Onset of menses at age 11 Number of children 2 Impression: The patient has osteoporosis, based on the Right Femoral Neck T- score. Discussion: INCREASED RISK OF FRACTURE. BONE DENSITY IS UNDESIRABLY LOW AT ONE OR MORE SKELETAL SITES, CONSISTENT WITH POSTMENOPAUSAL OSTEOPOROSIS. This patient's lowest T-score meets the World Health Organization's (WHO) criteria for osteoporosis at one or more sites (T-score -2.5 or below). In untreated patients, the risk of osteoporotic fracture increases approximately two-fold for each 1.0 SD decrease in T-score. Low bone density is not the only risk factor for fracture; also consider factors such as patient's age, frailty or poor health, risk of falling, risk of injury, previous osteoporotic fracture, family history of osteoporosis, cigarette smoking, low body weight, etc. Not everyone with low bone mineral density has osteoporosis; osteomalacia and other metabolic bone disorders should also be considered. Patients who have osteoporosis should be evaluated for specific diseases and conditions (secondary causes) that may cause or contribute to bone loss. The [place] [employer]ocrinologists (AACE) and National Osteoporosis Foundation (NOF) recommend pharmacologic intervention for all postmenopausal women whose T-score is in this range. The patient should follow a healthful lifestyle (good nutrition with adequate calcium and vitamin D, and appropriate weight-bearing exercise). Follow-Up: Consider a repeat BMD and Vertebral Fractu
== END 2023-05-07 10:41 | disposition home or self-care (01) ==
LOC: ANHIMG 10:41
PROVIDERS: PCP Family Medicine; Visit Provider Family Medicine
DX: M81.0 Age-related osteoporosis without current pathological fracture (principal); Z78.0 Asymptomatic menopausal state
CPT/HCPCS: 77080

== ENCOUNTER 2023-08-09 10:20 | Outpatient (CLI) | payer MEDICARE, OTHER, SELFPAY ==
[2023-08-09 19:12] LABS: Alanine Aminotransferase 15 U/L (6-35); Albumin Level 4.5 g/dL (3.5-5.1); Alkaline Phosphatase 53 U/L (38-126); Anion Gap 9 mmol/L (4-12); Aspartate Amino Transferase 40 U/L (14-36); Bilirubin,Total 0.9 mg/dL (0.2-1.3); Blood Urea Nitrogen 17 mg/dL (7-17); Calcium 10.3 mg/dL (8.4-10.2); Carbon Dioxide 26 mmol/L (22-30); Chloride 108 mmol/L (98-107); Cholesterol 209 mg/dL (0-200); Estimated Glomerular Filt Rate 48; Glucose 119 mg/dL (65-110); HDL Direct 58 mg/dL; Potassium 4.4 mmol/L (3.4-5.0); Sodium 143 mmol/L (137-145); Triglycerides 170 mg/dL (<150)
[2023-08-09 19:18] LABS: Appearance Urine Clear (Clear); Bilirubin Urine Negative (Negative); Blood Urine Negative (Negative); Color Urine Yellow (Yellow); Glucose Urine UA Negative (Negative); Ketones Urine Negative (Negative); Leukocyte Esterase Ur Negative LEU/UL (Negative); Nitrate Urine Negative (Negative); Protein Urine Negative (Negative); Specific Grav Ur 1.007 (1.001-1.035); Urobilinogen Urine 0.2 mg/dL (<2.0); pH Urine 6.5 (5.0-9.0)
[2023-08-09 19:19] LABS: Add Urine Microscopic? NO
[2023-08-09 19:23] LABS: Hematocrit 44.2 % (37.0-47.0); Hemoglobin 13.1 g/dL (12.0-15.0); Mean Corpuscular HGB Conc 29.6 g/dl (32-36); Mean Corpuscular Hemoglobin 29.5 pg (26-34); Mean Corpuscular Volume 99.5 fl (80-100); Mean Platelet Volume 12.2 fl (7.4-10.4); Platelet Count Result 192 k/mm3 (150-375); Red Blood Count 4.44 M/mm3 (4.2-5.4); Red Cell Distribution Width 14.9 % (11.5-14.5); White Blood Count 4.7 K/mm3 (4.5-10.0)
[2023-08-09 19:27] LABS: LDL Cholesterol Direct 98 mg/dL
[2023-08-09 19:48] LABS: Vitamin D 25 Hydroxy 69.4 ng/mL
== END 2023-08-09 10:21 | disposition home or self-care (01) ==
LOC: ANHBWCLAB 10:22
PROVIDERS: PCP Nurse Practitioner Adult Health; Visit Provider Family Medicine
DX: E78.5 Hyperlipidemia, unspecified (principal); F32.9 Major depressive disorder, single episode, unspecified; G47.33 Obstructive sleep apnea (adult) (pediatric); I10 Essential (primary) hypertension; J45.20 Mild intermittent asthma, uncomplicated; N18.30 Chronic kidney disease, stage 3 unspecified; R74.01 Elevation of levels of liver transaminase levels; R79.89 Other specified abnormal findings of blood chemistry; J30.2 Other seasonal allergic rhinitis; R53.83 Other fatigue; Z79.899 Other long term (current) drug therapy
CPT/HCPCS: 36415; 80053; 80061; 81003; 82306; 84443; 85027; 87086

== ENCOUNTER 2023-08-30 09:08 | Outpatient (CLI) | payer MEDICARE, OTHER, SELFPAY ==
[2023-08-30 20:49] LABS: Hemoglobin A1C 5.3 % (<5.7)
[2023-08-30 20:59] LABS: Hepatitis B Surface Antigen Negative (Negative)
[2023-08-30 21:05] LABS: HAV RESULT Negative (Negative); Hepatitis B Core IgM Result Negative (Negative)
[2023-08-30 21:17] LABS: Hepatitis C Virus Antibody Negative (Negative)
[2023-08-31 11:28] LABS: Ionized Calcium 5.1 mg/dL (4.7-5.5)
== END 2023-08-30 09:09 | disposition home or self-care (01) ==
LOC: ANHBWCLAB 09:10
PROVIDERS: PCP Nurse Practitioner Adult Health; Visit Provider Family Medicine
DX: E83.52 Hypercalcemia (principal); R74.01 Elevation of levels of liver transaminase levels; R73.03 Prediabetes; R79.89 Other specified abnormal findings of blood chemistry
CPT/HCPCS: 36415; 80074; 82330; 83036

== ENCOUNTER 2023-09-08 08:15 | Outpatient (CLI) | payer MEDICARE, OTHER, SELFPAY ==
--- NOTE | ~2023-09-08 | US_ITS ---
Limited Abdominal Sonogram: Real-time sonographic imaging of the right upper quadrant was performed. Clinical History: Diabetes Findings: The visualized liver appears normal with no evidence of mass lesion or bile duct dilatatio n. Main portal vein demonstrates normal direction of flow. The gallbladder is as in, compatible prior cholecystectomy. The common bile duct measures 5 mm. The pancreas is largely obscured by bowel gas shadowing. Visualized portions grossly unremarkable. Visualized aorta and IVC are unremarkable. Impression: Suboptimal exam due to bowel gas shadowing/body habitus. No significant abnormality seen. Status post cholecystectomy. Reviewed, dictated and finalized at [facility]. Impression: Suboptimal exam due to bowel gas shadowing/body habitus. No significant abnorma lity seen. Status post cholecystectomy.
== END 2023-09-08 08:16 | disposition home or self-care (01) ==
LOC: ANHIMG 08:17
PROVIDERS: PCP Nurse Practitioner Adult Health; Visit Provider Family Medicine
DX: R73.03 Prediabetes (principal); R74.01 Elevation of levels of liver transaminase levels; Z90.49 Acquired absence of other specified parts of digestive tract
CPT/HCPCS: 76705

== ENCOUNTER 2024-02-08 10:16 | Outpatient (CLI) | payer MEDICARE, OTHER, SELFPAY ==
[2024-02-08 18:48] LABS: Basophils Absolute Auto 0.1 K/mm3 (0.0-0.1); Basophils Percent Auto 1.5 % (0.2-1.2); Eosinophils Absolute Auto 0.1 K/mm3 (0-0.3); Eosinophils Percent Auto 1.3 % (0-4.4); Hematocrit 43.6 % (37.0-47.0); Hemoglobin 13.5 g/dL (12.0-15.0); Immature Granulocyte Absolute 0.02 K/mm3 (0.00-0.031); Immature Granulocyte Percent A 0.4 % (0-0.5); Lymphocytes Absolute Auto 2.34 K/mm3 (0.9-3.2); Lymphocytes Percent Auto 48.9 % (18.3-44.2); Mean Corpuscular Hemoglobin 30.7 pg (26-34); Mean Corpuscular Volume 99.1 fl (80-100); Mean Platelet Volume 12.5 fl (7.4-10.4); Monocytes Absolute Auto 0.4 K/mm3 (0.1-0.6); Monocytes Percent Auto 7.9 % (2.6-8.5); Neutrophils Absolute Auto 1.9 K/mm3 (1.3-6.7); Platelet Count Result 151 k/mm3 (150-375); Red Cell Distribution Width 14.5 % (11.5-14.5); White Blood Count 4.8 K/mm3 (4.5-10.0)
[2024-02-08 19:20] LABS: Alanine Aminotransferase 14 U/L (6-35); Albumin Level 4.5 g/dL (3.5-5.1); Alkaline Phosphatase 44 U/L (38-126); Anion Gap 11 mmol/L (4-12); Aspartate Amino Transferase 27 U/L (14-36); Bilirubin,Total 1.2 mg/dL (0.2-1.3); Blood Urea Nitrogen 13 mg/dL (7-17); Calcium 9.5 mg/dL (8.4-10.2); Carbon Dioxide 23 mmol/L (22-30); Chloride 104 mmol/L (98-107); Cholesterol 226 mg/dL (0-200); Estimated Glomerular Filt Rate 60; Glucose 95 mg/dL (65-110); HDL Direct 60 mg/dL; Magnesium 2.8 mg/dL (1.6-2.3); Potassium 4.5 mmol/L (3.4-5.0); Sodium 138 mmol/L (137-145); Triglycerides 201 mg/dL (<150)
[2024-02-08 19:21] LABS: Vitamin D 25 Hydroxy 69.2 ng/mL
[2024-02-08 19:31] LABS: Hemoglobin A1C 5.5 % (<5.7)
[2024-02-08 19:43] LABS: LDL Cholesterol Direct 96 mg/dL
== END 2024-02-08 10:17 | disposition home or self-care (01) ==
LOC: ANHBWCLAB 10:18
PROVIDERS: PCP Nurse Practitioner Adult Health; Visit Provider Nurse Practitioner Adult Health
DX: R73.03 Prediabetes (principal); I10 Essential (primary) hypertension; R79.89 Other specified abnormal findings of blood chemistry; Z79.899 Other long term (current) drug therapy
CPT/HCPCS: 36415; 80053; 80061; 82306; 83036; 83735; 85025

== ENCOUNTER 2024-06-16 00:50 | Day surgery (SDC) | payer MEDICARE, OTHER, SELFPAY ==
[2024-06-06 12:40] VITALS: BMI 31.0
[2024-06-16 10:13] VITALS: BP 144/80; PULSE 50; RESP 16; TEMP 36.1; O2SAT 97; BMI 30.2
--- NOTE | 2024-06-16 10:25 | WPDANESEPPF ---
Anes - Initial Pre Proc Eval Procedure: Operation Date: 06/16/24 11:30 Proposed Procedures p Colonoscopy - Richard Arteaga MD Date/Time: 06/16/24 10:25 Surgeon: Richard Arteaga MD Pre Op Diagnosis: hx of colon polyps Patient Data Age: 78 Gender: F Height: 1.63 m Weight: 80 kg Last Vital Signs Temp 36.1 C L 06/16/24 10:13 Pulse 50 L 06/16/24 10:13 Resp 16 06/16/24 10:13 BP 144/80 H 06/16/24 10:13 Pulse Ox 97 06/16/24 10:13 O2 Del Method Room Air 06/16/24 10:13 Allergies Allergy/AdvReac Type Severity Reaction Status Date / Time No Known Allergies Allergy Verified 06/16/24 10:11 Home Medications ?Medication ?Instructions ?Recorded ?Confirmed ?Type cholecalciferol (vitamin D3) 50 50 mcg PO DAILY #90 caps 01/22/21 06/16/24 Rx mcg (2,000 unit) capsule (Vitamin D3) albuterol sulfate 90 mcg/actuation 2 puff inhalation QID PRN 02/10/22 06/06/24 Rx aerosol inhaler shortness of breath or wheezing #8 grams golimumab 50 mg/0.5 mL 50 mg subcut MONTHLY 02/08/24 06/06/24 History subcutaneous pen injector (Simponi) budesonide 0.5 mg/2 mL suspension 0.5 mg (2 mL) inhalation DAILY #60 03/02/24 06/16/24 Rx for nebulization mL trazodone 50 mg tablet See Rx Instructions .Route 03/02/24 06/16/24 Rx .COMPLEX #90 tabs alendronate 70 mg tablet 70 mg PO WEEKLY #12 tabs 04/07/24 06/16/24 Rx montelukast 10 mg tablet 10 mg PO DAILY #90 tabs 04/07/24 06/16/24 Rx amlodipine 5 mg tablet See Rx Instructions .Route 05/16/24 06/16/24 Rx .COMPLEX #90 tabs famotidine 20 mg tablet See Rx Instructions .Route 05/16/24 06/16/24 Rx .COMPLEX #180 tabs metoprolol tartrate 50 mg tablet See Rx Instructions .Route 05/18/24 06/16/24 Rx .COMPLEX #180 tabs Patient hx anesthesia problems: none Family hx anesthesia problems: none Results Review: All pre-operative results and documents have been reviewed as part of the pre-operative evaluation. FOR[facility], [facility] Past Medical History Medical History Chronic GERD Elevated cholesterol Epigastric abdominal pain Generalized osteoarthritis of multiple sites Hyperglycemia Intermittent asthma BLAYNE (obstructive sleep apnea) Surgical History Surgical History History of bladder surgery History of vaginal hysterectomy Hx of cholecystectomy Family History Family History Mother Heart disease Grandparent Diabetes mellitus Social History Social History Smoking status: Never smoker Second hand tobacco smoke exposure: No Alcohol intake: never Lack of Transportation: No Lack of Food: Never True Current Housing: I Have Housing Concerned About Future Housing: No Difficulty Paying Gas/Electric Bills: No Difficulty Paying for Meds: No Currently Unemployed: No Education: High School Diploma/GED Difficulty w/ Childcare or Family Care: No Living arrangements: with family Occupation/Education: retired Gender identity (if verbalized by the patient): Female Spiritual care concerns: No Anes - Eval Final PreProcedure Day of Procedure 06/16/24 10:25 Patient weight: obese Heart: regular rate and rhythm Lungs: clear to auscultation Airway: Mallampati scale class II Neurological: alert and oriented Last oral intake: >/= 8 hours ASA classification: III Emergent: no Anesthetic plan: proceed Anesthesia type and monitoring: general GIVS and standard monitoring Results Review: All pre-operative results and documents have been reviewed as part of the pre-operative evaluation. Informed Consent: The patient's anesthetic plan and its attendant risks and benefits were discussed with the patient/family/POA. Questions were solicited and answers provided to the satisfaction of the patient/family/POA.
--- NOTE | 2024-06-16 10:35 | PM.HPGS ---
History of Present Illness History of Present Illness Consent: Risks, benefits, and alternatives have been discussed and questions answered. Patient agrees to proceed with procedure. Chief complaint: hx of colon polyps Narrative: Edel Suggs is a 78 year old female with colon polyp in 2020 Review of Systems Review of Systems: All systems reviewed & are unremarkable except as noted in HPI and below PMFSH Past Medical History Medical History (Updated 06/16/24 @ 10:36 by Richard Arteaga MD) Colon polyp Generalized osteoarthritis of multiple sites BLAYNE (obstructive sleep apnea) Elevated cholesterol Chronic GERD Intermittent asthma Epigastric abdominal pain Hyperglycemia Surgical History Surgical History History of bladder surgery History of vaginal hysterectomy Hx of cholecystectomy Family History Family History Mother Heart disease Grandparent Diabetes mellitus Social History Social History Smoking status: Never smoker Second hand tobacco smoke exposure: No Alcohol intake: never Lack of Transportation: No Lack of Food: Never True Current Housing: I Have Housing Concerned About Future Housing: No Difficulty Paying Gas/Electric Bills: No Difficulty Paying for Meds: No Currently Unemployed: No Education: High School Diploma/GED Difficulty w/ Childcare or Family Care: No Living arrangements: with family Occupation/Education: retired Gender identity (if verbalized by the patient): Female Spiritual care concerns: No Meds Home Medications and Allergies Home Medications ?Medication ?Instructions ?Recorded ?Confirmed ?Type cholecalciferol (vitamin D3) 50 50 mcg PO DAILY #90 caps 01/22/21 06/16/24 Rx mcg (2,000 unit) capsule (Vitamin D3) albuterol sulfate 90 mcg/actuation 2 puff inhalation QID PRN 02/10/22 06/06/24 Rx aerosol inhaler shortness of breath or wheezing #8 grams golimumab 50 mg/0.5 mL 50 mg subcut MONTHLY 02/08/24 06/06/24 History subcutaneous pen injector (Simponi) budesonide 0.5 mg/2 mL suspension 0.5 mg (2 mL) inhalation DAILY #60 03/02/24 06/16/24 Rx for nebulization mL trazodone 50 mg tablet See Rx Instructions .Route 03/02/24 06/16/24 Rx .COMPLEX #90 tabs alendronate 70 mg tablet 70 mg PO WEEKLY #12 tabs 04/07/24 06/16/24 Rx montelukast 10 mg tablet 10 mg PO DAILY #90 tabs 04/07/24 06/16/24 Rx amlodipine 5 mg tablet See Rx Instructions .Route 05/16/24 06/16/24 Rx .COMPLEX #90 tabs famotidine 20 mg tablet See Rx Instructions .Route 05/16/24 06/16/24 Rx .COMPLEX #180 tabs metoprolol tartrate 50 mg tablet See Rx Instructions .Route 05/18/24 06/16/24 Rx .COMPLEX #180 tabs Allergies Allergy/AdvReac Type Severity Reaction Status Date / Time No Known Allergies Allergy Verified 06/16/24 10:11 Vital Signs Vital Signs - 24 hr 06/16/24 10:13 Temperature 96.9 F L Pulse Rate 50 L Respiratory Rate 16 Blood Pressure 144/80 H Pulse Oximetry 97 Oxygen Delivery Room Air Exam Const: General: comfortable and no acute distress HENMT: Face/Nose/Sinus: Normal nares present Eyes: General: appearance normal, both eyes and all related structures Neck: Neck: no JVD Resp: Auscultation: clear to auscultation bilaterally Cardio: Rate: regular rate Rhythm: regular rhythm GI: Inspection: non-distended GI Palp: Yes Soft to palpation Skin: General skin exam: normal color Neuro: Speech: normal speech Extrem: General: normal to inspection Psych: Mental Status: mental status grossly normal Assessment and Plan Assessment and plan (1) Colon polyp: Code(s): K63.5 - Polyp of colon Status: Acute Assessment and Plan: colonoscopy
[2024-06-16] MEDS: LACTATED RINGERS 1,000 ML 150 ML IV CONT (10:43)
[2024-06-16 11:07] VITALS: BP 123/72; PULSE 65; RESP 29; O2SAT 98
[2024-06-16 11:18] VITALS: BP 132/73; PULSE 66; RESP 20; O2SAT 98
[2024-06-16 11:28] VITALS: BP 134/71; PULSE 65; RESP 20; O2SAT 98
== END 2024-06-16 11:40 | disposition home or self-care (01) ==
PROVIDERS: PCP Nurse Practitioner Adult Health; Visit Provider Internal Medicine Gastroenterology
PROC: 0DJD8ZZ Inspection of Lower Intestinal Tract, Via Natural or Artificial Opening Endoscopic (ICD-10-PCS; CPT 45378; principal; 2024-06-16 11:30)
DX: Z12.11 Encounter for screening for malignant neoplasm of colon (principal); D12.2 Benign neoplasm of ascending colon; D12.5 Benign neoplasm of sigmoid colon; K64.8 Other hemorrhoids; K57.30 Diverticulosis of large intestine without perforation or abscess without bleeding; G47.33 Obstructive sleep apnea (adult) (pediatric); M15.0 Primary generalized (osteo)arthritis; E78.00 Pure hypercholesterolemia, unspecified; K21.9 Gastro-esophageal reflux disease without esophagitis; J45.909 Unspecified asthma, uncomplicated; R73.9 Hyperglycemia, unspecified; E66.9 Obesity, unspecified; Z68.30 Body mass index [BMI] 30.0-30.9, adult; Z79.51 Long term (current) use of inhaled steroids; Z79.620 Long term (current) use of immunosuppressive biologic; Z79.83 Long term (current) use of bisphosphonates; Z98.890 Other specified postprocedural states; Z90.49 Acquired absence of other specified parts of digestive tract; Z82.49 Family history of ischemic heart disease and other diseases of the circulatory system
CPT/HCPCS: 45385; 88305; J0461; J2003; J2704; J7120

== ENCOUNTER 2024-08-09 13:21 | Outpatient (CLI) | payer MEDICARE, OTHER, SELFPAY ==
--- OUTSIDE RECORDS SUMMARY | 2024-08-09 15:03 | XMS_ITS | Clinical Summary ---
Author Organization [facility] Address [address] [place] [address] Care Team Providers Care Narcotics Detective Name Role Phone Sol Martinez NP Primary Care Provider [phone] Allergies No known active allergies Medications albuterol HFA (PROVENTIL HFA,VENTOLIN HFA,PROAIR HFA) 90 mcg/actuation inhalerIndicati ons:shortness of breath Inhale 2 puffs every 4 (four) hours as needed for wheezing 2 puffs every 4 to 6 hours for shortness of breath Active amLODIPine (NORVASC) 5 mg tabletIndicatio ns:hypertension Take 1 tablet (5 mg total) by mouth daily Active montelukast (SINGULAIR) 10 mg tablet Take 1 tablet (10 mg total) by mouth nightly 30 tablet 11 9 Active famotidine (PEPCID) 20 mg tablet Take 1 tablet (20 mg total) by mouth 2 (two) times a day 3 Active metoprolol tartrate (LOPRESSOR) 50 mg immediate release tablet Take 1 tablet (50 mg total) by mouth 2 (two) times a day 60 tablet 3 Active budesonide (PULMICORT) 0.5 mg/2 mL nebulizer solution Take 2 mL (0.5 mg total) by nebulization 2 (two) times a day 3 Active alendronate (FOSAMAX) 70 mg tablet Take 1 tablet (70 mg total) by mouth every 7 days 4 Active traZODone (DESYREL) 50 mg tablet Take 1 tablet (50 mg total) by mouth nightly 4 Active golimumab (SIMPONI ARIA) 12.5 mg/mL solutionIndicat ions:Rheumatoid Arthritis Infuse into a venous catheter 2mg/kg Active Active Problems Problem Noted Date Diagnosed Date Age-related osteoporosis wit hout current pathological fracture 05/26/2023 Assessment & Plan (05/24/2024 7:19 AM WORKFORCE ANALYST): Started on Alendronate weekly through PCP (05/2023). PCP managing. Assessment & Plan (01/05/2024 7:18 AM CDT): Started on Alendronate weekly through PCP (05/2023). PCP managing. Assessment & Plan (09/02/2023 12:29 PM CDT): Started on Alendronate weekly through PCP (05/2023). PCP managing. Assessment & Plan (05/26/2023 12:07 PM WORKFORCE ANALYST): New diagnosis since last visit. Started on Alendronate weekly through PCP (05/2023). Therapeutic drug monitoring 05/26/2023 Assessment & Plan (05/24/2024 11:50 AM WORKFORCE ANALYST): Patient is on immunosuppressive medication requiring intensive lab monitoring for medication safety. Assessment & Plan (01/05/2024 7:18 AM CDT): Labs from PCP reviewed. No evidence of medication toxicity. Assessment & Plan (09/02/2023 12:30 PM CDT): Labs from PCP reviewed. No evidence of medication toxicity. Assessment & Plan (05/26/2023 12:08 PM WORKFORCE ANALYST): Check labs for medication monitoring. Sinusitis 05/26/2023 Assessment & Plan (05/26/2023 12:09 PM WORKFORCE ANALYST): Cough, but lungs clear. Sinus pressure. Rx given for azithromycin. 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 She has asymmetric small and large joint involvement and was started on samples of Otezla by Dermatology. We were able to get approved through patient [employer]. Skin has improved, but joint symptoms are worse. Recently started on Simponi aria infusions, has only had 3 so far. We will try to extend for an additional 1-2 infusions and then consider medication change. Update labs to monitor inflammation markers. 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 She has asymmetric small and large joint involvement and was started on samples of Otezla by Dermatology. We were able to get approved through patient [employer]. Skin has improved, but joint symptoms are worse. She was approved through [employer] patient [employer] for Otezla, but they would not approve the Enbrel, so she has been off all medication and her joints are really bothering her. Look into Simponi aria infusions, [facility] is probably closest for her or a home infusion company. Look into insurance coverage. 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 She has asymmetric small and large joint involvement and was started on samples of Otezla by Dermatology. We were able to get approved through patient [employer]. Skin has improved, but joint symptoms are worse. Since she is already approved through [employer], going to switch from Otezla to Enbrel. Demonstrated use of Enbrel pen today and feels comfortable with idea of injection. Needs TB test before starting. 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 She has asymmetric small and large joint involvement and was started on samples of Otezla by Dermatology. We were able to get approved through patient [employer]. Tolerating well with exception of some loose stools. Will try to decrease back down to 1 daily, then try 1.5 (split dosing), then back up to two daily. Advised to reach out if GI symptoms do not improve. 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 She has asymmetric small and large joint involvement and was started on samples of Otezla by Dermatology. She has been taking now for about 6-7 weeks, she is tolerating fine without side effects and is starting to feel improvement with her joint pains. We discussed Otezla side effects and black box warning of worsening mood changes. Look into insurance coverage. Samples provided in the interim. Moderate persistent asthma with exacerbation Assessment & Plan (08/01/2018 2:26 AM CDT): Sinus tachycardia 08/01/2018 Dyslipidemia 12/23/2016 Assessment & Plan (08/01/2018 2:23 AM CDT): On statin Laryngopharyngeal reflux 12/23/2016 Overview (12/23/2016): Overview: Consultation with specialist-GI for scope to see if reflux is worse than appears. May need to refer back to pulmology Restless leg 07/03/2016 Overview (09/11/2016): Restless legs syndrome Hypertension 05/23/2015 Overview (07/22/2016): Hypertension Assessment & Plan (08/01/2018 2:25 AM CDT): Stable. Continue cardiac pertinent home medications. Cough variant asthma 02/11/2015 Overview (07/23/2016): Cough variant asthma Obstructive sleep apnea syndrome 02/11/2015 Overview (07/24/2016): BLAYNE Assessment & Plan (08/01/2018 2:22 AM CDT): Restart on CPAP Gastroesophageal reflux disease 12/14/2013 Overview (07/24/2016): GERD Assessment & Plan (08/01/2018 2:24 AM CDT): Continue with PPI Depression 01/05/2013 Overview (07/23/2016): Depression Osteoarthritis 05/28/2011 Overview (07/23/2016): Osteoarthritis Resolved Problems Problem Noted Date Diagnosed Date Resolved Date Shortness of breath 01/16/2015 12/24/19 17 Overview (07/23/2016): SOB (shortness of breath) Dyspnea on exertion 01/16/2015 12/24/19 17 Overview (07/24/2016): RHODES (dyspnea on exertion) Morbid obesity 01/16/2015 12/23/2016 Overview (07/24/2016): Morbid obesity Assessment & Plan (08/01/2018 2:23 AM CDT): Noted. Weight loss encouraged Chronic cough 01/16/2015 12/23/2016 Overview (07/24/2016): Chronic cough Encounters Date Type Department Care Team Description 08/08/2024 8:50 AM CDT - 08/08/2024 11:59 PM CDT Hospital Encounter [address] [address] Psoriatic arthritis (HCC) (Primary Dx) Discharge Disposition: Discharge to home or self care 06/25/2024 Results Follow-Up [facility] Rheumatology at [facility] [address], [place] [id number] Jessica Madrid DO 06/13/2024 8:47 AM WORKFORCE ANALYST - 06/13/2024 11:59 PM WORKFORCE ANALYST Hospital Encounter [address] [address] Psoriatic arthritis (HCC) (Primary Dx); Age-related osteoporosis without current pathological fracture; Therapeutic drug monitoring Discharge Disposition: Discharge to home or self care 05/24/2024 11:45 AM WORKFORCE ANALYST Office Visit [facility] Rheumatology at [facility] [address] [id number] Jessica Madrid DO Psoriatic arthritis (HCC) (Primary Dx); Age-related osteoporosis without current pathological fracture; Therapeutic drug monitoring from Last 3 Months Immunizations Immunization Administration Dates Next Due Influenza, Trivalent, Adjuva nted, Intramuscular 01/31/2018,01/30/2018 Influenza, Trivalent, High D ose, Split, Preservative Free, Intramuscular 01/18/2017,05/28/2016,02/11/2015 Pneumococcal Conjugate PCV 13 11/25/2015, 011 Pneumococcal Polysaccharide PPV23 11/11/2010 Td, adsorbed 11/11/2010 Tetanus Toxoid, Unspecified 01/25/2023 ZOSTER Recombinant 01/25/2023 Surgical History Surgery Date Site/Laterality Comments CHOLECYSTECTOMY Cholecystectomy HYSTERECTOMY Hysterectomy OTHER SURGICAL HISTORY 04/19/2015 - 04/18/2016 iron fell on head: Medical Management 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 OTHER SURGICAL HISTORY 04/19/2016 - 04/18/2017 Pelvic prolapse: midurethral sling, perineorrhaphy OOPHORECTOMY Medical History Medical History Date Comments Hypertension Hypertension Osteoarthritis Osteoarthritis Depression Depression Hx Other Medical Dr. Dipak Shen mpson-Pessary placed. Hx Other Medical cough sob Hx Other Medical iron fell on he ad Hx Other Medical Hypertension Hx Other Medical GERD Hx Other Medical Asthma & allerg ies Hx Other Medical Depression Hx Other Medical Hyperlipidemia Hx Other Medical Sleep apnea Hx Other Medical 1989 Menorrhagia Hx Other Medical LLQ pain Hx Other Medical Asthma & allerg ies Hx Other Medical 2016 Pelvic prolapse Sleep apnea Family History Medical History Relation Name Comments Other Brother 1 jean pierre Alive and well; Other Brother 2 lenora pacemaker/defib rillator; Hypertension Brother 3 ximena Hypertension; Hypertension Brother 4 Hypertension; Other Father killed in WWII; /Killed in WWII; paternal side unknown; Diabetes Maternal Grandmother Diabete s; Heart attack Mother Myocardial infa rction; Cause of : Myocardial infarction/MS; Cause of : MS Other Mother's Brother Cancer, sto mach; Other Mother's Sister Cancer, ? ty pe in leg; Other Sister 1 robles Alive and well; Hypertension Sister 2 shanika Hypertension; Hypertension Sister 3 Hypertension; Breast cancer Neg Hx Ovarian cancer Neg Hx Relation Name Status Comments Brother 1 jean pierre Alive Brother 2 lenora (Age 80) Brother 3 ximena Brother 4 Father Maternal Grandmother Mother (Age 56) Mother's Brother Mother's Sister Sister 1 robles Alive Sister 2 shanika Sister 3 Social History Tobacco Use Types Packs/Day Years Used Date Smoking Tobacco: Never Smokeless Tobacco: Never Tobacco Cessation:Counseling Given: Not Answered Alcohol Use Standard Drinks/Week Comments No 0 (1 standard drink = 0.6 oz pur e alcohol) AUDIT-C Answer Date Recorded Q1: How often do you have a drink containing alcohol? Never 07/09/2022 Q2: How many drinks containi ng alcohol do you have on a typical day when you are drinking? Patient does not drink Q3: How often do you have si x or more drinks on one occasion? Never 07/09/2022 PHQ-2 Answer Date Recorded PHQ-2 Score 0 12/08/2018 Personal Safety Answer Date Recorded Have you ever been in or are you currently in a harmful physical or emotional relationship or is someone making you feel afraid or unsafe? Denies 01/15/2023 Comments No Sex and Gender Information Value Date Recorded Sex Assigned at Not on file Legal Sex Female 12:05 PM WORKFORCE ANALYST Gender Identity Female 08/03/2023 10:00 AM CDT Sexual Orientation Straight 08/03/2023 10 :00 AM CDT Obstetrics History Para Term AB IAB SAB Ectopic Multiple Livin g Live Births 2 2 2 Date Outcome GA Total Labor Labor/2nd/3rd Weight Sex Type Anes PTL Yessica A1 A5 Name Clin Term Term Last Filed Vital Signs Vital Sign Reading Time Taken Comments Blood Pressure 146/75 08/08/2024 9:00 AM CDT Pulse 52 08/08/2024 9:00 AM CDT Temperature 36.4 C (97.6 F) 08/08/2024 9:00 AM CDT Respiratory Rate 18 08/08/2024 9:00 AM CDT Oxygen Saturation 96% 08/08/2024 9:00 AM CDT Inhaled Oxygen Concentration - - Weight 81.2 kg (179 lb) 08/08/2024 8:50 AM CDT Height 162.6 cm (5' 4 ) 05/24/2024 10:50 AM WORKFORCE ANALYST Body Mass Index 30.73 05/24/2024 10:50 AM WORKFORCE ANALYST Plan of Treatment Health Maintenance Due Date Last Done Comments Fall Risk Assessment 1945 Hepatitis B Screening 11/28/1963 DTaP/Tdap/Td Vaccine (1 - Tdap) 11/12/2010 1 Well Visit 65+ 12/23/2017 12/23/2016 Depression Screening 08/01/2019 07/31/2018, 12/24/19 17 Osteoporosis Screening-Bone Density Scan 01/31/2023 01/31/2021, 12/19/2009 Zoster Vaccine (2 of 2) 03/22/2023 01/25/2023 Influenza Vaccine (Season Ended) 2024 01/31/2018, 01/30/2018, 01/18/2017, Additional history exists Pneumococcal vaccine 65+ Completed 016, 11/11/2010, 11/11/2010 Procedures Procedure Name Priority Date/Time Associated Diagnosis Comments EGFR Routine 06/13/2024 9:17 AM WORKFORCE ANALYST Psoriatic arthritis (HCC) Age-related osteoporosis without current pathological fracture Therapeutic drug monitoring CRP (ACUTE PHASE) Routine 06/13/2024 9:1 7 AM WORKFORCE ANALYST Psoriatic arthritis (HCC) Age-related osteoporosis without current pathological fracture Therapeutic drug monitoring ERYTHROCYTE SEDIMENTATION RATE Routine 06/13/2024 9:17 AM WORKFORCE ANALYST Psoriatic arthritis (HCC) Age-related osteoporosis without current pathological fracture Therapeutic drug monitoring COMPREHENSIVE METABOLIC PANEL Routine 06/13/2024 9:17 AM WORKFORCE ANALYST Psoriatic arthritis (HCC) Age-related osteoporosis without current pathological fracture Therapeutic drug monitoring CBC WITHOUT DIFFERENTIAL Routine 06/13/2024 9:17 AM WORKFORCE ANALYST Psoriatic arthritis (HCC) Age-related osteoporosis without current pathological fracture Therapeutic drug monitoring DEXA AXIAL SKELETON BONE DENSITY 1 OR MORE SITES Schedule Routine, Read Routine (OP Routine) 01/31/2021 9:21 AM CDT Asymptomatic menopausal state from Last 3 Months or Most Recently Relevant to Health Maintenance Results * (ABNORMAL) eGFR (06/13/2024 9:17 AM WORKFORCE ANALYST) eGFR 58(L) >=60 mL/min/1. 73 m2 Comment: Interpretive Data Reference Interval Normal >/= 90 mL/min/1.73m2 Mildly decreased* 60 - 89 mL/min/1.73m2 Mildly to moderately decreased 45 - 59 mL/min/1.73m2 Moderately to severely decreased 30 - 44 mL/min/1.73m2 Severely decreased 15 - 29 mL/min/1.73m2 Kidney Failure < 15 mL/min/1.73m2 *Relative to young adult level Estimated glomerular filtration rate is determined by the 2020 CKD-EPI equation recommended by the National Kidney Foundation (A Unifying Approach to GFR Estimation: Recommendations of the NKF-ASK Task Force on Reassessing the Inclusion of Race in Diagnosing Kidney Disease, JASN 2020). The CKD-EPI equation should not be used for patients with unstable renal function and has not been validated in children and those over 70. Current interpretive data was last reviewed 2021. Blood 06/13/2024 9:17 AM WORKFORCE ANALYST 06/13/2024 9:21 AM WORKFORCE ANALYST Jessica Madrid DO LAB BLOOD ORDERABLES Final Result [facility] [address] [facility] Department [place] [address] * Erythrocyte sedimentation rate (06/13/2024 9:17 AM WORKFORCE ANALYST) Erythrocyte sedimentation rate 9 1 - 30 mm/hr Blood 06/13/2024 9:17 AM WORKFORCE ANALYST 06/13/2024 9:21 AM WORKFORCE ANALYST us Jessica Madrid DO LAB BLOOD ORDERABLES Final Result [facility] [address] [place] [address] * CBC without differential (06/13/2024 9:17 AM WORKFORCE ANALYST) WBC 4.4 3.8 - 9.9 K/cumm Hgb 13.1 11.9 - 15.5 g/dL [facility] Hct 40.4 35.6 - 45.5 % [facility] Plt 216 150 - 400 K/cumm [facility] MPV 10.4 9.1 - 12.3 fL [facility] RBC 4.32 3.90 - 5.20 M/cumm [facility] MCV 93.5 81.3 - 96.4 fL [facility] MCH 30.3 27.1 - 33.3 pg [facility] MCHC 32.4 32.3 - 35.7 g/dL [facility] RDW CV 13.7 11.1 - 14.9 % [facility] RDW SD 47.5 35.7 - 48.1 fL [facility] NRBC abs 0.00 0.00 - 0.01 K/cumm [facility] Blood 06/13/2024 9:17 AM WORKFORCE ANALYST 06/13/2024 9:21 AM WORKFORCE ANALYST Jessica Madrid DO LAB BLOOD ORDERABLES Final Result Performing Organization Address City/[facility]/ZIP Co de Phone Number FAUSTO [address] [place] [address] * CRP (acute phase) (06/13/2024 9:17 AM WORKFORCE ANALYST) CRP 0.3 <=10.0 mg/L Blood 06/13/2024 9:17 AM WORKFORCE ANALYST 06/13/2024 9:21 AM WORKFORCE ANALYST Jessica Madrid DO LAB BLOOD ORDERABLES Final Result Performing Organization Address City/[facility]/ZIP Co de Phone Number FAUSTO [address] [place] [address] * Comprehensive metabolic panel (06/13/2024 9:17 AM WORKFORCE ANALYST) Sodium 138 135 - 145 mmol/L Potassium, pl 3.9 3.3 - 4.9 mmol/L [facility] Chloride 105 97 - 110 mmol/L [facility] CO2 24 22 - 32 mmol/L [facility] Anion gap 9 2 - 15 mmol/L [facility] BUN 12 6 - 25 mg/dL [facility] Creatinine 0.98 0.60 - 1.10 mg/dL [facility] Glucose 86 70 - 199 mg/dL [facility] Comment: Interpretive Data Fasting glucose >/= 126 mg/dl is diagnostic for diabetes. Fasting is defined as no caloric intake for at least 8 hours. Fasting glucose between 100 mg/dl to 125 mg/dl is diagnostic of prediabetes. In a patient with classic symptoms of hyperglycemia or hyperglycemic crisis, a random glucose >/= 200 mg/dl is diagnostic for diabetes. In the absence of unequivocal hyperglycemia, results should be confirmed by repeat testing. The classification and Diagnosis of Diabetes Diabetes Care 2021; 46: S19-S40. Current interpretive data was last revised 2022. Calcium 9.5 8.5 - 10.3 mg/dL [facility] Bilirubin, total 0.7 0.1 - 1.2 mg/dL [facility] Protein, pl 6.9 6.5 - 8.5 g/dL [facility] Albumin 4.2 3.5 - 5.0 g/dL [facility] Alk phos 46 40 - 130 Units/L [facility] ALT 10 7 - 45 Units/L [facility] AST 24 10 - 45 Units/L [facility] Blood 06/13/2024 9:17 AM WORKFORCE ANALYST 06/13/2024 9:21 AM WORKFORCE ANALYST Jessica Madrid DO LAB BLOOD ORDERABLES Final Result [facility] KIM [address] [facility] Department [place] [address] * Dexa Axial Skeleton Bone Density 1 or 2 Site (01/31/2021 9:21 AM CDT) Anatomical Region Laterality Modality Body N/A Other 01/31/2021 9:38 AM CDT Narrative 01/31/2021 9:39 AM CDT EXAM DESCRIPTION: DEXA AXIAL SKELETON BONE DENSITY 1 OR MORE SITES REASON FOR STUDY: 75 year old female with given history of asymptomatic menopausal state. Pediatric Immunologist/Model: [employer] SL (S/N [id number]) CLINICAL INFORMATION: Current height: 64 inches Maximum height: 65 inches Weight: 200 pounds Risk factors: Postmenopausal, no regular weight-bearing exercise or dairy product consumption, drinks caffeinated beverages. Has taken vitamin-D. COMPARISON: None available. FINDINGS: AP LUMBAR SPINE L1-L4: Total BMD is 0.841 g/cm2 T-score is -1.9 LEFT HIP: Total BMD is 0.760 g/cm2 T-score is -1.5 Femoral neck BMD is 0.636 g/cm2 T-score is -1.9 IMPRESSION: Low bone mass. Fracture risk assessment (FRAX): 10 year risk for a major osteoporotic fracture is 13 % 10 year risk for a hip fracture is 3.0 % The FRAX tool has not been validated in patients currently or previously treated with pharmacotherapy for osteoporosis. In such patients, clinical judgement must be exercised in interpreting FRAX scores as the fracture risk may be overestimated. REFERENCE: Bone mineral density: Normal (T-score above or = -1.0) Low bone mass (T-score between -1.0 and -2.5) replaces the previously used term osteopenia Osteoporosis (T-score = or below -2.5) Medical evaluation for secondary causes of low bone mineral density may be appropriate. FRAX is a World Health Organization validated fracture risk assessment tool that calculates a person's 10 year probability of a major osteoporosis related fracture and hip fracture. According to the National Osteoporosis Foundation guidelines, postmenopausal women and men age 50 or older with low bone mass and a 10 year probability of a major osteoporosis related fracture = or greater than 20% or a 10 year probability of a hip fracture = or greater than 3% should be considered for treatment. For further information, including treatment recommendations, please refer to the 2013 ISCD Official Positions (http://www.iscd.org) and the NOF's Clinician's Guide to Prevention and Treatment of Osteoporosis (http://www.nof.org/professionals/clinical-guidelines) THIS IS AN ELECTRONICALLY VERIFIED FINAL REPORT 01/31/2021 9:39 AM - Electronically signed by Phillip Hollingsworth M.D., MD: Report ID: [id number] Reading Location: [place] [address] Procedure Note Phillip Hollingsworth MD - 01/31/2021 EXAM DESCRIPTION: DEXA AXIAL SKELETON BONE DENSITY 1 OR MORE SITES REASON FOR STUDY: 75 year old female with given history of asymptomatic menopausal state. Pediatric Immunologist/Model: [employer] SL (S/N [id number]) CLINICAL INFORMATION: Current height: 64 inches Maximum height: 65 inches Weight: 200 pounds Risk factors: Postmenopausal, no regular weight-bearing exercise or dairy product consumption, drinks caffeinated beverages. Has taken vitamin-D. COMPARISON: None available. FINDINGS: AP LUMBAR SPINE L1-L4: Total BMD is 0.841 g/cm2 T-score is -1.9 LEFT HIP: Total BMD is 0.760 g/cm2 T-score is -1.5 Femoral neck BMD is 0.636 g/cm2 T-score is -1.9 IMPRESSION: Low bone mass. Fracture risk assessment (FRAX): 10 year risk for a major osteoporotic fracture is 13 % 10 year risk for a hip fracture is 3.0 % The FRAX tool has not been validated in patients currently or previously treated with pharmacotherapy for osteoporosis. In such patients, clinical judgement must be exercised in interpreting FRAX scores as the fracturerisk may be overestimated. REFERENCE: Bone mineral density: Normal (T-score above or = -1.0) Low bone mass (T-score between -1.0 and -2.5) replaces thepreviously used term osteopenia Osteoporosis (T-score = or below -2.5) Medical evaluation for secondary causes of low bone mineral density may be appropriate. FRAX is a World Health Organization validated fracture risk assessmenttool that calculates a person's 10 year probability of a major osteoporosisrelated fracture and hip fracture. According to the National OsteoporosisFoundation guidelines, postmenopausal women and men age 50 or older with low bonemass and a 10 year probability of a major osteoporosis related fracture = or greater than 20% or a 10 year probability of a hip fracture = or greaterthan 3% should be considered for treatment. For further information, including treatment recommendations, please referto the 2013 ISCD Official Positions (http://www.iscd.org) and the NOF's Clinician's Guide to Prevention and Treatment of Osteoporosis (http://www.nof.org/professionals/clinical-guidelines) THIS IS AN ELECTRONICALLY VERIFIED FINAL REPORT 01/31/2021 9:39 AM - Electronically signed by Phillip Hollingsworth M.D. MD: Report ID: [id number] Reading Location: [place] [address] us Dirk Luis MD IMG DXA PROCEDURES Final Result from Last 3 Months or Most Recently Relevant to Health Maintenance Insurance MEDICARE [facility] MEDICARE [employer] MEDICARE [employer] [place] Advance Directives For more information, please contact: [phone] * Full Code (Latest Code Status on File) Date Activated Date Inactivated Comments 07/31/2018 3:21 PM 08/01/2018 5:26 PM Care Teams Narcotics Detective Relationship Specialty Start Date End Date Sol Martinez NP [address] [place] [address] PCP - General Nurse Practitioner 01/05/24
--- OUTSIDE RECORDS SUMMARY | 2024-08-09 15:03 | XMS_ITS | Clinical Summary ---
Author Organization [facility] Address [address] [facility], [address] [address] Phone Care Team Providers Care Weapons And Tactics Instructor Name Role Phone SheronKwame berry Primary Care Provider [phone] Allergies No known active allergies Medications amLODIPine (NORVASC) 2.5 MG Tablet Active Azelastine HCl (ASTEPRO) 0.15 % Solution 2 sprays in each nostril twice daily Active benzonatate (TESSALON) 100 MG Capsule Active fluticasone (FLONASE) 50 MCG/ACT Suspension Active Escitalopram Oxalate (LEXAPRO) 5 MG Tablet Active omeprazole (PRILOSEC) 20 MG CAPSULE DELAYED RELEASE Daily in the evening before supper Active omeprazole (PRILOSEC) 40 MG CAPSULE DELAYED RELEASE One capsule 30-60 minutes before breakfast and dinner Active pantoprazole (PROTONIX) 40 MG Tablet Delayed Response One tablet 30-60 minutes before breakfast and dinner Active budesonide (PULMICORT) 0.5 MG/2ML Suspension 0.5 mg by Nebulization route 2 times daily. Active Fexofenadine HCl (CHRISTINE PO) Take by mouth daily. Active aspirin EC 81 MG Tablet Delayed Response Take 81 mg by mouth daily. Active Turmeric 500 MG Capsule Take 1 Tab by mouth daily. Active Active Problems Problem Noted Date Diagnosed Date Chronic laryngitis Laryngopharyngeal reflux Overview (03/12/2015): Consultation with specialist-GI for scope to see if reflux is worse than appears. May need to refer back to pulmology Family History Medical History Relation Name Comments Cancer Maternal Aunt colon Diabetes Maternal Grandmother Cancer Maternal Uncle stomach Heart Attack Mother Relation Name Status Comments Father Maternal Aunt Maternal Grandmother Maternal Uncle Mother Social History Tobacco Use Types Packs/Day Years Used Date Smoking Tobacco: Never Smokeless Tobacco: Never Alcohol Use Standard Drinks/Week Comments No 0 (1 standard drink = 0.6 oz pur e alcohol) Comments Unknown Sex and Gender Information Value Date Recorded Sex Assigned at Not on file Legal Sex Female 11:05 PM CDT Gender Identity Not on file Sexual Orientation Not on file Occupation Industry Job Start Date Job End Date 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 [employer] Not on file Not on file Not on file Last Filed Vital Signs Vital Sign Reading Time Taken Comments Blood Pressure 127/84 12/28/2017 10:45 AM CDT Pulse 74 12/28/2017 7:56 AM CDT Temperature 36 C (96.8 F) 12/28/2017 10:45 AM CDT Respiratory Rate 15 12/28/2017 10:45 AM CDT Oxygen Saturation 97% 12/28/2017 10:45 AM CDT Inhaled Oxygen Concentration - - Weight 90.7 kg (200 lb) 12/14/2017 9:00 AM CDT Height 162.6 cm (5' 4 ) 12/14/2017 9:00 AM CDT Body Mass Index 34.33 12/14/2017 9:00 AM CDT Plan of Treatment Health Maintenance Due Date Last Done Comments Hepatitis C Virus (HCV) Screening 1945 TdaP Immunization 1945 Pneumococcal Immunization (5 0+ years) (1 of 1 - PCV) 11/28/1993 Zoster Immunization (1 of 2) 11/28/1993 Respiratory Syncytial Virus (RSV) Immunization (Adult) (1 - 1-dose 75+ series) 11/28/2018 Influenza Immunization (#1) 2023 SARS-COV-2 Immunization ( - 2023- season) 2023 Hepatitis B Immunization Aged Out No longer eligible based on patient's age to complete this topic Meningococcal Immunization (ACWY) Aged Out No longer eligible based on patient's age to complete this topic Rotavirus Immunization Aged Out No lo nger eligible based on patient's age to complete this topic Insurance MEDICARE [facility] Care Teams Weapons And Tactics Instructor Relationship Specialty Start Date End Date Kwame Cuello DO [address] [place] [address] PCP - General Family Medicine 11/25/17
--- OUTSIDE RECORDS SUMMARY | 2024-08-09 15:03 | XMS_ITS | Encounter Summary ---
Author Organization [facility] Healthcare Address [address] [place] [address] Care Team Providers Care Women Designer Name Role Phone Sol Martinez NP Primary Care Provider [phone] Reason for Visit * Episode Based Medications (Routine) - Authorized Specialty Diagnoses / Procedures Referred By Honorio roche Referred To Contact Diagnoses Psoriatic arthritis (HCC) Jessica Madrid DO [address] [place] [address] Phone: tel: fax: [address] [address] Phone: tel: fax: Referral ID Status Reason Start Date Expiration Date V isits Requested Visits Authorized [id number] Authorized 01/05/2024 02/03/2025 99 99 Encounter Details Date Type Department Care Team (Latest Contact Info) Description 08/08/2024 8:50 AM CDT - 08/08/2024 11:59 PM CDT Hospital Encounter [address] [address] Psoriatic arthritis (HCC) (Primary Dx) Discharge Disposition: Discharge to home or self care Social History Tobacco Use Types Packs/Day Years [...] on file Legal Sex Female 12:05 PM NEWS REEL CAMERAMAN Gender Identity Female 08/03/2023 10:00 AM CDT Sexual Orientation Straight 08/03/2023 10 :00 AM CDT documented as of this encounter Last Filed Vital Signs Vital Sign Reading Time Taken Comments Blood Pressure 146/75 08/08/2024 9:00 AM CDT Pulse 52 08/08/2024 9:00 AM CDT Temperature 36.4 C (97.6 F) 08/08/2024 9:00 AM CDT Respiratory Rate 18 08/08/2024 9:00 AM CDT Oxygen Saturation 96% 08/08/2024 9:00 AM CDT Inhaled Oxygen Concentration - - Weight 81.2 kg (179 lb) 08/08/2024 8:50 AM CDT Height - - Body Mass Index 30.73 05/24/2024 10:50 AM NEWS REEL CAMERAMAN documented in this encounter Medications at Time of Discharge albuterol HFA (PROVENTIL HFA,VENTOLIN HFA,PROAIR HFA) 90 mcg/actuation inhalerIndicatio ns:shortness of breath Inhale 2 puffs every 4 (four) hours as needed for wheezing 2 puffs every 4 to 6 hours for shortness of breath alendronate (FOSAMAX) 70 mg tablet Take 1 tablet (70 mg total) by mouth every 7 days 05/19/2023 amLODIPine (NORVASC) 5 mg tabletIndication s:hypertension Take 1 tablet (5 mg total) by mouth daily budesonide (PULMICORT) 0.5 mg/2 mL nebulizer solution Take 2 mL (0.5 mg total) by nebulization 2 (two) times a day 11/11/2022 famotidine (PEPCID) 20 mg tablet Take 1 tablet (20 mg total) by mouth 2 (two) times a day 06/17/2022 golimumab (SIMPONI ARIA) 12.5 mg/mL solutionIndicati ons:Rheumatoid Arthritis Infuse into a venous catheter 2mg/kg traZODone (DESYREL) 50 mg tablet Take 1 tablet (50 mg total) by mouth nightly 08/09/2023 documented as of this encounter Discharge Disposition Disposition Code Departure Means Destination Discharge to home or self care documented in this encounter Plan of Treatment Not on file documented as of this encounter Visit Diagnoses Diagnosis Psoriatic arthritis (HCC)- Primary Psoriatic arthropathy documented in this encounter Administered Medications Inactive Administered Medications - up to 3 most recent administrations Medication Order MAR Action Action Date Dose Rate Site golimumab (SIMPONI ARIA) 162.5 mg in sodium chloride 0.9% 100 mL IVPB 162.5 mg (rounded from 162.4 mg = 2 mg/kg 81.2 kg), intravenous, at 200 mL/hr, Administer over 30 Minutes, Once, On Wed08/08/24 at 0945, For 1 dose, Maintenance Dose Use 0.2 micron in-line filter.Indications:Psoriatic arthritis (HCC) New Bag 08/08/2024 9:35 AM CDT 162.5 mg 200 mL/hr documented in this encounter Orders Medications Ordered That Chriss ht Not Have Been Administered Count Last Ordered Date First Ordered Date golimumab (SIMPONI ARIA) 162 .5 mg in sodium chloride 0.9% 100 mL IVPB 1 08/08/2024 sodium chloride 0.9% flush 10 mL 1 08/09/19 25 Nursing Count Last Ordered Date First Orde red Date ONCBCN PROVIDER COMMUNICATION 1 5 documented in this encounter Care Teams Women Designer Relationship Specialty Start Date End Date Sol Martinez NP [address] [place] [address] PCP - General Nurse Practitioner 01/05/24 documented as of this encounter
--- OUTSIDE RECORDS SUMMARY | 2024-08-09 15:03 | XMS_ITS | Encounter Summary ---
Author Organization [facility] Healthcare Address [address] [place] [address] Care Team Providers Care Leasing Representative Name Role Phone Sol Martinez NP Primary Care Provider [phone] Encounter Details Date Type Department Care Team (Late st Contact Info) Description 06/25/2024 Results Follow-Up [facility] Rheumatology at [facility] [address] [place] [id number] Jessica Madrid, DO [address] [facility] [address] [place] [address] Social History Tobacco Use Types Packs/Day Years [...] on file Legal Sex Female 12:05 PM 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
--- OUTSIDE RECORDS SUMMARY | 2024-08-09 15:03 | XMS_ITS | Referral Summary ---
Author Organization [facility] Address [address] [place] [address] Care Team Providers Care Miter Operator Name Role Phone Sol Martinez NP Primary Care Provider [phone] Encounters Date Type Department Care Team Description 08/08/2024 8:50 AM CDT - 08/08/2024 11:59 PM CDT Hospital Encounter [address] [address] Psoriatic arthritis (HCC) (Primary Dx) Discharge Disposition: Discharge to home or self care 06/25/2024 Results Follow-Up [facility] Rheumatology at [address] [id number] Jessica Madrid DO 06/13/2024 8:47 AM MEDIA AID - 06/13/2024 11:59 PM MEDIA AID Hospital Encounter [address] [address] Psoriatic arthritis (HCC) (Primary Dx); Age-related osteoporosis without current pathological fracture; Therapeutic drug monitoring Discharge Disposition: Discharge to home or self care 05/24/2024 11:45 AM MEDIA AID Office Visit [facility] Rheumatology at [address] [address] Jessica Madrid DO Psoriatic arthritis (HCC) (Primary Dx); Age-related osteoporosis without current pathological fracture; Therapeutic drug monitoring from Last 3 Months Allergies No known active allergies Medications albuterol [...] 05/26/2023 Assessment & Plan (05/24/2024 7:19 AM MEDIA AID): Started on Alendronate weekly through PCP (05/2023). PCP managing. Assessment & Plan (01/05/2024 7:18 AM CDT): Started on Alendronate weekly through PCP (05/2023). PCP managing. Assessment & Plan (09/02/2023 12:29 PM CDT): Started on Alendronate weekly through PCP (05/2023). PCP managing. Assessment & Plan (05/26/2023 12:07 PM MEDIA AID): New diagnosis since last visit. Started on Alendronate weekly through PCP (05/2023). Therapeutic drug monitoring 05/26/2023 Assessment & Plan (05/24/2024 11:50 AM MEDIA AID): Patient is on immunosuppressive medication requiring intensive lab monitoring for medication safety. Assessment & Plan (01/05/2024 7:18 AM CDT): Labs from PCP reviewed. No evidence of medication toxicity. Assessment & Plan (09/02/2023 12:30 PM CDT): Labs from PCP reviewed. No evidence of medication toxicity. Assessment & Plan (05/26/2023 12:08 PM MEDIA AID): Check labs for medication monitoring. Sinusitis 05/26/2023 Assessment & Plan (05/26/2023 12:09 PM MEDIA AID): Cough, but lungs clear. Sinus pressure. Rx given for azithromycin. 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 She has asymmetric small and large joint involvement and was started on samples of Otezla by Dermatology. We were able to get approved through patient foundation. Skin has improved, but joint symptoms are [...] were able to get approved through patient [employer]ic[employer]. Skin has improved, but joint symptoms are worse. She was approved through [employer] patient [employer]ic[employer] for Otezla, but they would not approve the Enbrel, so she has been off all medication and her joints are really bothering her. Look into Simponi aria infusions, [facility] is probably closest for her or a home infusion company. Look into insurance coverage. 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 She has asymmetric small and large joint involvement and was started on samples of Otezla by Dermatology. We were able to get approved through patient [employer]ic[employer]. Skin has improved, but joint symptoms are worse. Since she is already approved through [employer], going to switch from Otezla to Enbrel. Demonstrated use of Enbrel pen today and feels comfortable with idea of injection. Needs TB test before starting. 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 She has asymmetric small and large joint involvement and was started on samples of Otezla by Dermatology. We were able to get approved through patient minic[employer]. Tolerating well with exception of some loose [...] cough 01/16/2015 12/23/2016 Overview (07/24/2016): Chronic cough Immunizations Immunization Administration Dates Next Due Influenza, Trivalent, Adjuva nted, Intramuscular 01/31/2018,01/30/2018 Influenza, Trivalent, High D ose, Split, Preservative Free, Intramuscular 01/18/2017,05/28/2016,02/11/2015 Pneumococcal Conjugate PCV 13 11/25/2015, 011 Pneumococcal Polysaccharide PPV23 11/11/2010 Td, adsorbed 11/11/2010 Tetanus Toxoid, Unspecified 01/25/2023 ZOSTER Recombinant 01/25/2023 Social History Tobacco Use Types Packs/Day Years [...] on file Legal Sex Female 12:05 PM MEDIA AID Gender Identity Female 08/03/2023 10:00 AM CDT Sexual Orientation Straight 08/03/2023 10 :00 AM CDT Last Filed Vital Signs Vital Sign Reading [...] cm (5' 4 ) 05/24/2024 10:50 AM MEDIA AID Body Mass Index 30.73 05/24/2024 10:50 AM MEDIA AID Plan of Treatment Not on file Procedures Procedure Name Priority Date/Time Associated Diagnosis Comments EGFR Routine 06/13/2024 9:17 AM MEDIA AID Psoriatic arthritis (HCC) Age-related osteoporosis without current pathological fracture Therapeutic drug monitoring CRP (ACUTE PHASE) Routine 06/13/2024 9:1 7 AM MEDIA AID Psoriatic arthritis (HCC) Age-related osteoporosis without current pathological fracture Therapeutic drug monitoring ERYTHROCYTE SEDIMENTATION RATE Routine 06/13/2024 9:17 AM MEDIA AID Psoriatic arthritis (HCC) Age-related osteoporosis without current pathological fracture Therapeutic drug monitoring COMPREHENSIVE METABOLIC PANEL Routine 06/13/2024 9:17 AM MEDIA AID Psoriatic arthritis (HCC) Age-related osteoporosis without current pathological fracture Therapeutic drug monitoring CBC WITHOUT DIFFERENTIAL Routine 06/13/2024 9:17 AM MEDIA AID Psoriatic arthritis (HCC) Age-related osteoporosis without current pathological fracture Therapeutic drug monitoring DEXA AXIAL SKELETON BONE DENSITY 1 OR MORE SITES Schedule Routine, Read Routine (OP Routine) 01/31/2021 9:21 AM CDT Asymptomatic menopausal state from Last 3 Months or Most Recently Relevant to Health Maintenance Results * (ABNORMAL) eGFR (06/13/2024 9:17 AM MEDIA AID) [facility] eGFR 58(L) >=60 mL/min/1. 73 m2 Comment: [...] last reviewed 2021. Blood 06/13/2024 9:17 AM MEDIA AID 06/13/2024 9:21 AM MEDIA AID Jessica Madrid LAB BLOOD ORDERABLES Final Result Performing Organization Address [facility] Co de Phone Number [address] [place] [address] * Erythrocyte sedimentation rate (06/13/2024 9:17 AM MEDIA AID) Pathologist [facility] Erythrocyte sedimentation rate 9 1 - 30 mm/hr Blood 06/13/2024 9:17 AM MEDIA AID 06/13/2024 9:21 AM MEDIA AID Jessica Madrid LAB BLOOD ORDERABLES Final Result Performing Organization Address [facility] de Phone Number [address] [place] [address] * CBC without differential (06/13/2024 9:17 AM MEDIA AID) Pathologist [facility] WBC 4.4 3.8 - 9.9 K/cumm Hgb 13.1 11.9 - 15.5 g/dL [facility] Hct 40.4 35.6 - 45.5 % [facility] Plt 216 150 - 400 K/cumm [facility] MPV 10.4 9.1 - 12.3 fL [facility] RBC 4.32 3.90 - 5.20 M/cumm [facility] MCV 93.5 81.3 - 96.4 fL [facility] MCH 30.3 27.1 - 33.3 pg [facility] MCHC 32.4 32.3 - 35.7 g/dL [facility] RDW CV 13.7 11.1 - 14.9 % [facility] RDW SD 47.5 35.7 - 48.1 fL [facility] NRBC abs 0.00 0.00 - 0.01 K/cumm [facility] Blood 06/13/2024 9:17 AM MEDIA AID 06/13/2024 9:21 AM MEDIA AID Jessica Madrid LAB BLOOD ORDERABLES Final Result Performing Organization Address City/[facility] Co de Phone Number [address] [place] [employer] [place] [address] * CRP (acute phase) (06/13/2024 9:17 AM MEDIA AID) [facility] CRP 0.3 <=10.0 mg/L Blood 06/13/2024 9:17 AM MEDIA AID 06/13/2024 9:21 AM MEDIA AID Jessica Madrid DO LAB BLOOD ORDERABLES Final Result Performing Organization Address [facility] de Phone Number [address] [employer] [place] [address] * Comprehensive metabolic panel (06/13/2024 9:17 AM MEDIA AID) Pathologist [facility] Sodium 138 135 - 145 mmol/L Potassium, pl 3.9 3.3 - 4.9 mmol/L [facility] Chloride 105 97 - 110 mmol/L [facility] CO2 24 22 - 32 mmol/L [facility] Anion gap 9 2 - 15 mmol/L [facility] BUN 12 6 - 25 mg/dL [facility] Creatinine 0.98 0.60 - 1.10 mg/dL [facility] Glucose 86 70 - 199 mg/dL [facility] Comment: Interpretive Data Fasting glucose >/= 126 [...] 2022. Calcium 9.5 8.5 - 10.3 mg/dL [facility] Bilirubin, total 0.7 0.1 - 1.2 mg/dL [facility] Protein, pl 6.9 6.5 - 8.5 g/dL [facility] Albumin 4.2 3.5 - 5.0 g/dL [facility] Alk phos 46 40 - 130 Units/L [facility] ALT 10 7 - 45 Units/L [facility] AST 24 10 - 45 Units/L [facility] Blood 06/13/2024 9:17 AM MEDIA AID 06/13/2024 9:21 AM MEDIA AID us Jessica Madrid DO LAB BLOOD ORDERABLES Final Result [facility] [address] [facility] Department [place] [address] * Dexa Axial Skeleton Bone Density 1 or 2 Site (01/31/2021 9:21 AM CDT) Anatomical Region Laterality Modality Body N/A Other 01/31/2021 9:38 AM CDT Narrative 01/31/2021 9:39 AM CDT EXAM DESCRIPTION: DEXA AXIAL SKELETON BONE DENSITY 1 OR MORE SITES REASON FOR STUDY: 75 year old female with given history of asymptomatic menopausal state. 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) CLINICAL INFORMATION: Current height: 64 inches Maximum [...] by Phillip Hollingsworth M.D., MD: Report ID: [id number] Reading Location: [place] [address] us Dirk Luis MD IMG DXA PROCEDURES Final Result from Last 3 Months or Most Recently Relevant to Health Maintenance Insurance MEDICARE [facility] MEDICARE COMMERCIAL GENERIC [facility] MEDICARE [facility] Advance Directives For more information, please contact: [phone] * Full Code (Latest Code Status on File) Date Activated Date Inactivated Comments 07/31/2018 3:21 PM 08/01/2018 5:26 PM Care Teams Miter Operator Relationship Specialty Start Date End Date Sol Martinez NP [address] [place] [address] PCP - General Nurse Practitioner 01/05/24
--- OUTSIDE RECORDS SUMMARY | 2024-08-09 15:03 | XMS_ITS | Clinical Summary ---
Author Organization [facility] Facility Address [address] [address] Care Team Providers Care Director Health Name Role Phone Dirk Luis MD Primary Care Provider [phone] Social History Tobacco Use Types Packs/Day Years Used Date Smoking Tobacco: Never Alcohol Use Standard Drinks/Week Comments No 0 (1 standard drink = 0.6 oz pur e alcohol) Comments Unknown Sex and Gender Information Value Date Recorded Sex Assigned at Not on file Legal Sex Female 2:50 PM EDT Gender Identity Not on file Sexual Orientation Not on file Last Filed Vital Signs Vital Sign Reading Time Taken Comments Blood Pressure 120/78 06/11/2021 9:20 AM MUCK OPERATOR Pulse 105 06/11/2021 9:20 AM MUCK OPERATOR Temperature 35.9 C (96.6 F) 06/11/2021 9:20 AM MUCK OPERATOR Respiratory Rate 18 06/11/2021 9:20 AM MUCK OPERATOR Oxygen Saturation 99% 06/11/2021 9:20 AM MUCK OPERATOR Inhaled Oxygen Concentration - - Weight 88.5 kg (195 lb 3.2 oz) 06/11/2021 9:20 A M MUCK OPERATOR Height 162.6 cm (5' 4 ) 06/11/2021 9:20 AM MUCK OPERATOR Body Mass Index 33.51 06/11/2021 9:20 AM MUCK OPERATOR Plan of Treatment Health Maintenance Due Date Last Done Comments Influenza Vaccine (Season Ended) 2024 05/28/2016, 02/11/2015 Pneumococcal Vaccine: 50+ Years Completed 11/25/2015, 11/11/2010 Hepatitis B Vaccine Aged Out No longe r eligible based on patient's age to complete this topic Insurance Medicare [facility] [place] [id number] Care Teams Director Health Relationship Specialty Start Date End Date Dirk Luis MD [address] [place] [id number] PCP - General Family Medicine 06/11/21
[2024-08-09 19:59] LABS: Mean Platelet Volume 11.1 fl (7.4-10.4); Platelet Count Result 229 k/mm3 (150-375); Red Blood Count 4.33 M/mm3 (4.2-5.4); Red Cell Distribution Width 13.9 % (11.5-14.5); White Blood Count 7.1 K/mm3 (4.5-10.0)
[2024-08-09 20:57] LABS: Alanine Aminotransferase 17 U/L (6-35); Albumin Level 4.6 g/dL (3.5-5.1); Alkaline Phosphatase 54 U/L (38-126); Anion Gap 9 mmol/L (4-12); Aspartate Amino Transferase 48 U/L (14-36); Bilirubin,Total 0.7 mg/dL (0.2-1.3); Blood Urea Nitrogen 15 mg/dL (7-17); Calcium 9.5 mg/dL (8.4-10.2); Carbon Dioxide 27 mmol/L (22-30); Chloride 102 mmol/L (98-107); Cholesterol 229 mg/dL (0-200); Estimated Glomerular Filt Rate 58; Glucose 82 mg/dL (65-110); HDL Direct 63 mg/dL; Magnesium 2.2 mg/dL (1.6-2.3); Potassium 4.1 mmol/L (3.4-5.0); Sodium 138 mmol/L (137-145); Triglycerides 155 mg/dL (<150)
[2024-08-09 21:07] LABS: LDL Cholesterol Direct 99 mg/dL
[2024-08-09 21:52] LABS: Hemoglobin A1C 5.5 % (<5.7)
== END 2024-08-09 13:22 | disposition home or self-care (01) ==
PROVIDERS: PCP Nurse Practitioner Adult Health; Visit Provider Nurse Practitioner Adult Health
DX: R79.89 Other specified abnormal findings of blood chemistry (principal); I10 Essential (primary) hypertension; R53.83 Other fatigue; R73.03 Prediabetes; Z79.899 Other long term (current) drug therapy
CPT/HCPCS: 36415; 80053; 80061; 82306; 82607; 83036; 83735; 85027

== ENCOUNTER 2024-09-05 09:46 | Outpatient (CLI) | payer MEDICARE, OTHER, SELFPAY ==
--- NOTE | ~2024-09-05 | DEXA_ITS ---
Bone Density Report Name: DENISA FAIRCHILD Age: 78 Sex: Female Ethnicity: White Date of : 1945 Indication: osteopenia; height loss; asthma or emphysema; hysterectomy; Referring Provider: DANII WESTBROOK Study: Bone densitometry was performed. Exam Date: September 05, 2024 Accession number: [id number] Bone Density: Region BMD T-score Z-score Classification AP Spine(L1-L4) 0.949 -0.9 1.8 Normal Femoral Neck (Left) 0.646 -1.8 0.5 Osteopenia Total Hip (Left) 0.800 -1.2 0.9 Osteopenia Femoral Neck (Right) 0.544 -2.7 -0.4 Osteoporosis Total Hip (Right) 0.716 -1.9 0.2 Osteopenia Total Hip Mean 0.758 -1.6 0.6 Osteopenia World Health Organization criteria for BMD impression classify patients as: Normal (T-score at or above -1.0), Osteopenia (T-score between -1.0 and -2.5), or Osteoporosis (T-score at or below -2.5). 10-year Fracture Risk: FRAX not reported because: Some T-score for Spine Total or Hip Total or Femoral Neck at or below -2.5 Previous Exams: Region Exam Age BMD T-score BMD Change BMD Change Date g/cm2 vs Baseline vs Previous AP Spine (L1-L4) 09/05/2024 78 0.949 -0.9 0.107 (12.7%)* 0.107 (12.7%)* 05/07/2023 77 0.842 -1.9 Total Hip(Left) 09/05/2024 78 0.800 -1.2 0.058 (7.9%)* 0.058 (7.9%)* 05/07/2023 77 0.742 -1.6 Total Hip(Right) 09/05/2024 78 0.716 -1.9 0.007 (0.9%) 0.007 (0.9%) 05/07/2023 77 0.709 -1.9 *Denotes significance at 95% confidence level, LSC for AP Spine = 0.022 g/cm2, LSC for Total Hip = 0.027 g/cm2 Clinical Information Provided by Patient: Has used the following medications: Vitamin D, Calcium Has the following medical conditions: Asthma or Emphysema, Hysterectomy Patient maximum height was 65.0 Menopause Age: 47 No regular weight bearing exercise Does not regularly consume dairy products Drinks caffeinated beverages Onset of menses at age 11 Number of children 2 Impression: The patient has osteoporosis, based on the Right Femoral Neck T-score. No significant bone loss was observed. Discussion: INCREASED RISK OF FRACTURE. BONE DENSITY IS UNDESIRABLY LOW AT ONE OR MORE SKELETAL SITES, CONSISTENT WITH POSTMENOPAUSAL OSTEOPOROSIS. This patient's lowest T-score meets the World Health Organization's (WHO) criteria for osteoporosis at one or more sites (T-score -2.5 or below). In untreated patients, the risk of osteoporotic fracture increases approximately two-fold for each 1.0 SD decrease in T-score. Low bone density is not the only risk factor for fracture; also consider factors such as patient's age, frailty or poor health, risk of falling, risk of injury, previous osteoporotic fracture, family history of osteoporosis, cigarette smoking, low body weight, etc. Not everyone with low bone mineral density has osteoporosis; osteomalacia and other metabolic bone disorders should also be considered. Patients who have osteoporosis should be evaluated for specific diseases and conditions (secondary causes) that may cause or contribute to bone loss. The [place] Association of Clinical Endocrinologists (AACE) and National Osteoporosis Foundation (NOF) recommend pharmacologic intervention for all postmenopausal women whose T-score is in this range. The patient should follow a healthful lifestyle (good nutrition with adequate calcium and vitamin D, and appropriate weight-bearing exercise). Follow-Up: Consider a repeat BMD and Vertebral Fracture Assessment (VFA) exam in 2 years or sooner if medically necessary, to reassess this patient's status. Reported by: STEVIE on 09/05/2024 10:19:00 AM. Reviewed, dictated and finalized at location A.
--- OUTSIDE RECORDS SUMMARY | 2024-09-05 09:57 | XMS_ITS | Clinical Summary ---
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
--- OUTSIDE RECORDS SUMMARY | 2024-09-05 09:57 | XMS_ITS | Referral Summary ---
Author Organization [facility] Address [address] [place] [id number] Care Team Providers Care Gold Stamper Name Role Phone Sol Martinez NP Primary Care Provider [phone] Encounters Date Type Department Care Team Description 08/28/2024 Telephone [facility] Rheumatology at [address] [place] [phone] Jessica Madrid DO Cos[facility]x Infusion order [facility] 08/24/2024 Documentation [facility] Rheumatology at [address] [place] [phone] Jessica Madrid DO NP VINCENT ROI 08/24/2024 11:15 AM CDT Office Visit [facility] Rheumatology at [address] [place] [phone] Jessica Madrid DO Psoriatic arthritis (HCC) (Primary Dx); Age-related osteoporosis without current pathological fracture; Therapeutic drug monitoring; Screening for tuberculosis 08/08/2024 8:50 AM CDT - 08/08/2024 11:59 PM CDT Hospital Encounter [address] [address] Psoriatic arthritis (HCC) (Primary Dx) Discharge Disposition: Discharge to home or self care 06/25/2024 Results Follow-Up [facility] Rheumatology at [facility] [address] [facility] [address] [place] [address] Jessica Madrid DO CBC without differential, Comprehensive metabolic panel, Erythrocyte sedimentation rate, Additional followed-up results: 2 06/13/2024 8:47 AM SHOE STAMPER - 06/13/2024 11:59 PM SHOE STAMPER Hospital Encounter [address] [address] Psoriatic arthritis (HCC) (Primary Dx); Age-related osteoporosis without current pathological fracture; Therapeutic drug monitoring Discharge Disposition: Discharge to home or self care from Last 3 Months Allergies No known [...] ARIA) 12.5 mg/mL solutionIndicat ions:Rheumatoid Arthritis Infuse IV 2mg/kg Every 2 months Active cyanocobalamin, vitamin B-12, 1,000 mcg lozenge Take 1,000 mcg by mouth daily 5 Active Active Problems Problem Noted Date Diagnosed Date Age-related osteoporosis wit hout current pathological fracture 05/26/2023 Assessment & Plan (08/23/2024 3:39 PM CDT): Started on Alendronate weekly through PCP (05/2023). PCP managing. Assessment & Plan (05/24/2024 7:19 AM SHOE STAMPER): Started on Alendronate weekly through PCP (05/2023). PCP managing. Assessment & Plan (01/05/2024 7:18 AM CDT): Started on Alendronate weekly through PCP (05/2023). PCP managing. Assessment & Plan (09/02/2023 12:29 PM CDT): Started on Alendronate weekly through PCP (05/2023). PCP managing. Assessment & Plan (05/26/2023 12:07 PM SHOE STAMPER): New diagnosis since last visit. Started on Alendronate weekly through PCP (05/2023). Therapeutic drug monitoring 05/26/2023 Assessment & Plan (08/28/2024 9:56 AM CDT): Patient is on immunosuppressive medication requiring intensive lab monitoring for medication safety. Sign ROR from PCP for recent labs. Assessment & Plan (05/24/2024 11:50 AM SHOE STAMPER): Patient is on immunosuppressive medication requiring intensive lab monitoring for medication safety. Assessment & Plan (01/05/2024 7:18 AM CDT): Labs from PCP reviewed. No evidence of medication toxicity. Assessment & Plan (09/02/2023 12:30 PM CDT): Labs from PCP reviewed. No evidence of medication toxicity. Assessment & Plan (05/26/2023 12:08 PM SHOE STAMPER): Check labs for medication monitoring. Sinusitis 05/26/2023 Assessment & Plan (05/26/2023 12:09 PM SHOE STAMPER): Cough, but lungs clear. Sinus pressure. Rx given for azithromycin. 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 She has asymmetric small and large joint involvement and was started on samples of Otezla by Dermatology. We were able to get approved through patient [employer]. Skin has improved, but joint symptoms are worse. Recently started on Simponi aria infusions, not noticing any improvement. Will switch to Cosentx. 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 She has asymmetric small and large joint involvement and was started on samples of Otezla by Dermatology. We were able to get approved through patient [employer]. Skin has improved, but joint symptoms are [...] were able to get approved through patient [employer]. Skin has improved, but joint symptoms are worse. She was approved through [employer] patient [employer] for Otezla, but they would not approve the Enbrel, so she has been off all medication and her joints are really bothering her. Look into Simponi aria infusions, [facility] is probably closest for her or a home infusion company. Look into insurance coverage. 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 She has asymmetric small and large joint involvement and was started on samples of Otezla by Dermatology. We were able to get approved through patient [employer]. Skin has improved, but joint symptoms are worse. Since she is already approved through [employer], going to switch from Otezla to Enbrel. Demonstrated use of Enbrel pen today and feels comfortable with idea of injection. Needs TB test before starting. 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 She has asymmetric small and large joint involvement and was started on samples of Otezla by Dermatology. We were able to get approved through patient [employer]. Tolerating well with exception of some loose [...] on file Legal Sex Female 12:05 PM SHOE STAMPER Gender Identity Female 08/03/2023 10:00 AM CDT Sexual Orientation Straight 08/03/2023 10 :00 AM CDT Last Filed Vital Signs Vital Sign Reading Time Taken Comments Blood Pressure 140/68 08/24/2024 11:06 AM CDT Pulse 50 08/24/2024 11:06 AM CDT Temperature 36.7 C (98.1 F) 08/24/2024 11:06 AM CDT Respiratory Rate 16 08/24/2024 11:06 AM CDT Oxygen Saturation 100% 08/24/2024 11:06 AM CDT Inhaled Oxygen Concentration - - Weight 80.8 kg (178 lb 3.2 oz) 08/24/2024 11:06 AM CDT Height 162.6 cm (5' 4 ) 08/24/2024 11:06 AM CDT Body Mass Index 30.59 08/24/2024 11:06 AM CDT Plan of Treatment Not on file Procedures Procedure Name Priority Date/Time Associated Diagnosis Comments TB TEST, QUANTIFERON GOLD Routine 08/28/2024 10:42 AM CDT Screening for tuberculosis EGFR Routine 06/13/2024 9:17 AM SHOE STAMPER Psoriatic arthritis (HCC) Age-related osteoporosis without current pathological fracture Therapeutic drug monitoring CRP (ACUTE PHASE) Routine 06/13/2024 9:1 7 AM SHOE STAMPER Psoriatic arthritis (HCC) Age-related osteoporosis without current pathological fracture Therapeutic drug monitoring ERYTHROCYTE SEDIMENTATION RATE Routine 06/13/2024 9:17 AM SHOE STAMPER Psoriatic arthritis (HCC) Age-related osteoporosis without current pathological fracture Therapeutic drug monitoring COMPREHENSIVE METABOLIC PANEL Routine 06/13/2024 9:17 AM SHOE STAMPER Psoriatic arthritis (HCC) Age-related osteoporosis without current pathological fracture Therapeutic drug monitoring CBC WITHOUT DIFFERENTIAL Routine 06/13/2024 9:17 AM SHOE STAMPER Psoriatic arthritis (HCC) Age-related osteoporosis without current pathological fracture Therapeutic drug monitoring DEXA AXIAL SKELETON BONE DENSITY 1 OR MORE SITES Schedule Routine, Read Routine (OP Routine) 01/31/2021 9:21 AM CDT Asymptomatic menopausal state from Last 3 Months or Most Recently Relevant to Health Maintenance Results * TB test, quantiferon gold (08/28/2024 10:42 AM CDT) Pathologist [facility] QuantiFERON(R)-T B Gold Plus, 1 Tube NEGATIVE NEGATIVE [facility] Comment: Negative test result. M. tuberculosis complex infection unlikely. NIL 0.05 IU/mL [facility] MITOGEN-NIL >10.00 IU/mL [facility] TB1-NIL 0.05 IU/mL [facility] TB2-NIL 0.06 IU/mL [facility] Comment: The Nil tube value reflects the background interferon gamma immune response of the patient's blood sample. This value has been subtracted from the patient's displayed TB and Mitogen results. Lower than expected results with the Mitogen tube prevent false-negative Quantiferon readings by detecting a patient with a potential immune suppressive condition and/or suboptimal pre-analytical specimen handling. The TB1 Antigen tube is coated with the M. tuberculosis-specific antigens designed to elicit responses from TB antigen primed CD4+ helper T-lymphocytes. The TB2 Antigen tube is coated with the M. tuberculosis-specific antigens designed to elicit responses from TB antigen primed CD4+ helper and CD8+ cytotoxic T-lymphocytes. For additional information, please refer to https://education.Mark One/faq/VNG385 (This link is being provided for informational/ educational purposes only.) Blood 08/28/2024 10:4 2 AM CDT 08/28/2024 10:42 AM CDT [facility] - 08/31/2024 11:02 AM CDT FASTING:NO FASTING: NO Jessica Madrid DO LAB BLOOD ORDERABLES Final Result [facility] [address] [place] [address] * (ABNORMAL) eGFR (06/13/2024 9:17 AM SHOE STAMPER) eGFR 58(L) >=60 mL/min/1. 73 m2 Comment: [...] last reviewed 2021. Blood 06/13/2024 9:17 AM SHOE STAMPER 06/13/2024 9:21 AM SHOE STAMPER [facility] B[facility] Final Result Performing Organization Address [facility] Co de Phone Number [address] [address] * Erythrocyte sedimentation rate (06/13/2024 9:17 AM SHOE STAMPER) Erythrocyte sedimentation rate 9 1 - 30 mm/hr Blood 06/13/2024 9:17 AM SHOE STAMPER 06/13/2024 9:21 AM SHOE STAMPER [facility]LOOD ORDERABLES Final Result Performing Organization Address [facility] de Phone Number [address] [address] * CBC without differential (06/13/2024 9:17 AM SHOE STAMPER) WBC 4.4 3.8 - 9.9 K/cumm Hgb 13.1 11.9 - 15.5 g/dL [facility] Hct 40.4 35.6 - 45.5 % [facility] Plt 216 150 - 400 K/cumm [facility] MPV 10.4 9.1 - 12.3 fL [facility] RBC 4.32 3.90 - 5.20 M/cumm [facility] MCV 93.5 81.3 - 96.4 fL [facility] MCH 30.3 27.1 - 33.3 pg [facility] MCHC 32.4 32.3 - 35.7 g/dL [facility] RDW CV 13.7 11.1 - 14.9 % [facility] RDW SD 47.5 35.7 - 48.1 fL [facility] NRBC abs 0.00 0.00 - 0.01 K/cumm [facility] Blood 06/13/2024 9:17 AM SHOE STAMPER 06/13/2024 9:21 AM SHOE STAMPER Jessica Madrid LAB BLOOD ORDERABLES Final Result Performing Organization Address [facility] Co de Phone Number [facility] [address] [address] * CRP (acute phase) (06/13/2024 9:17 AM SHOE STAMPER) [facility] CRP 0.3 <=10.0 mg/L Blood 06/13/2024 9:17 AM SHOE STAMPER 06/13/2024 9:21 AM SHOE STAMPER Jessica Madrid LAB BLOOD ORDERABLES Final Result Performing Organization Address [facility] de Phone Number [facility] [place] [address] * Comprehensive metabolic panel (06/13/2024 9:17 AM SHOE STAMPER) [facility] Sodium 138 135 - 145 mmol/L Potassium, pl 3.9 3.3 - 4.9 mmol/L [facility] Chloride 105 97 - 110 mmol/L [facility] CO2 24 22 - 32 mmol/L [facility] Anion gap 9 2 - 15 mmol/L [facility] BUN 12 6 - 25 mg/dL [facility] Creatinine 0.98 0.60 - 1.10 mg/dL [facility] Glucose 86 70 - 199 mg/dL [facility] Comment: Interpretive Data Fasting glucose >/= 126 [...] classification and Diagnosis of Diabetes Diabetes Care 202; 46: S19-S40. Current interpretive data was last revised 2022. Calcium 9.5 8.5 - 10.3 mg/dL [facility] Bilirubin, total 0.7 0.1 - 1.2 mg/dL [facility] Protein, pl 6.9 6.5 - 8.5 g/dL [facility] Albumin 4.2 3.5 - 5.0 g/dL [facility] Alk phos 46 40 - 130 Units/L [facility] ALT 10 7 - 45 Units/L [facility] 24 10 - 45 Units/L [facility] Blood 06/13/2024 9:17 AM SHOE STAMPER 06/13/2024 9:21 AM SHOE STAMPER us Jessica Madrid DO LAB BLOOD ORDERABLES Final Result [facility] [address] [facility] Department [place] [address] * Dexa Axial Skeleton Bone Density 1 or 2 Site (01/31/2021 9:21 AM CDT) Anatomical Region Laterality Modality Body N/A Other 01/31/2021 9:38 AM CDT Narrative 01/31/2021 9:39 AM CDT EXAM DESCRIPTION: DEXA AXIAL SKELETON BONE DENSITY 1 OR MORE SITES REASON FOR STUDY: 75 year old female with given history of asymptomatic menopausal state. Lye Machine Operator/Model: Trade[employer]am (S/N [id number]) CLINICAL INFORMATION: Current height: 64 inches Maximum [...] by Phillip Hollingsworth M.D., MD: Report ID: [id number] Reading Location: [place] [address] Procedure Note Phillip Hollingsworth MD - 01/31/2021 EXAM DESCRIPTION: DEXA AXIAL SKELETON BONE DENSITY 1 OR MORE SITES REASON FOR STUDY: 75 year old female with given history of asymptomatic menopausal state. Lye Machine Operator/Model: TradeBeam (S/N [id number]) CLINICAL INFORMATION: Current height: 64 inches Maximum [...] by Phillip Hollingsworth M.D., MD: Report ID: [id number] Reading Location: [place] [address] Dirk Luis MD IMG DXA PROCEDURES Final Result from Last 3 Months or Most Recently Relevant to Health Maintenance Insurance MEDICARE [employer] [place] MEDICARE COMM[employer]CIAL [employer] [employer]IC[employer] Advance Directives For more information, please contact: [phone] * Full Code (Latest Code Status on File) Date Activated Date Inactivated Comments 07/31/2018 3:21 PM 08/01/2018 5:26 PM Care Teams Gold Stamper Relationship Specialty Start Date End Date Sol Martinez NP [address] [place] [id number] PCP - General Nurse Practitioner 01/05/24
--- OUTSIDE RECORDS SUMMARY | 2024-09-05 09:57 | XMS_ITS | Clinical Summary ---
Author Organization [facility] Facility Address [address] [address] Care Team Providers Care Microgrinder Operator Name Role Phone Dirk Luis MD Primary Care Provider Social History Tobacco Use Types Packs/Day Years [...] Comments Blood Pressure 120/78 06/11/2021 9:20 AM PRINT OPERATOR Pulse 105 06/11/2021 9:20 AM PRINT OPERATOR Temperature 35.9 C (96.6 F) 06/11/2021 9:20 AM PRINT OPERATOR Respiratory Rate 18 06/11/2021 9:20 AM PRINT OPERATOR Oxygen Saturation 99% 06/11/2021 9:20 AM PRINT OPERATOR Inhaled Oxygen Concentration - - Weight 88.5 kg (195 lb 3.2 oz) 06/11/2021 9:20 A M PRINT OPERATOR Height 162.6 cm (5' 4 ) 06/11/2021 9:20 AM PRINT OPERATOR Body Mass Index 33.51 06/11/2021 9:20 AM PRINT OPERATOR Plan of Treatment Health Maintenance Due Date Last Done Comments Influenza Vaccine (Season Ended) 2024 05/28/2016, 02/11/2015 Pneumococcal Vaccine: 50+ Years Completed 11/25/2015, 11/11/2010 Hepatitis B Vaccine Aged Out No longe r eligible based on patient's age to complete this topic Insurance Medicare [facility] [place] [id number] Care Teams Microgrinder Operator Relationship Specialty Start Date End Date Dirk Luis MD [address] [place] [id number] PCP - General Family Medicine 06/11/21
--- OUTSIDE RECORDS SUMMARY | 2024-09-05 09:58 | XMS_ITS | Clinical Summary ---
Author Organization [facility] Address [address] [place] [address] Care Team Providers Care Choke Setter Name Role Phone Sol Martinez NP Primary Care Provider Allergies No known active allergies Medications albuterol [...] managing. Assessment & Plan (05/24/2024 7:19 AM SAND FILLER): Started on Alendronate weekly through PCP (05/2023). PCP managing. Assessment & Plan (01/05/2024 7:18 AM CDT): Started on Alendronate weekly through PCP (05/2023). PCP managing. Assessment & Plan (09/02/2023 12:29 PM CDT): Started on Alendronate weekly through PCP (05/2023). PCP managing. Assessment & Plan (05/26/2023 12:07 PM SAND FILLER): New diagnosis since last visit. Started on Alendronate weekly through PCP (05/2023). Therapeutic drug monitoring 05/26/2023 Assessment & Plan (08/28/2024 9:56 AM CDT): Patient is on immunosuppressive medication requiring intensive lab monitoring for medication safety. Sign ROR from PCP for recent labs. Assessment & Plan (05/24/2024 11:50 AM SAND FILLER): Patient is on immunosuppressive medication requiring intensive lab monitoring for medication safety. Assessment & Plan (01/05/2024 7:18 AM CDT): Labs from PCP reviewed. No evidence of medication toxicity. Assessment & Plan (09/02/2023 12:30 PM CDT): Labs from PCP reviewed. No evidence of medication toxicity. Assessment & Plan (05/26/2023 12:08 PM SAND FILLER): Check labs for medication monitoring. Sinusitis 05/26/2023 Assessment & Plan (05/26/2023 12:09 PM SAND FILLER): Cough, but lungs clear. Sinus pressure. Rx given for azithromycin. 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 She has asymmetric small and large joint involvement and was started on samples of Otezla by Dermatology. We were able to get approved through patient [employer]. Skin has improved, but joint symptoms are worse. Recently started on Simponi aria infusions, not noticing any improvement. Will switch to Cosentx. 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 She has asymmetric small and large joint involvement and was started on samples of Otezla by Dermatology. We were able to get approved through patient [employer]. Skin has improved, but joint symptoms are [...] were able to get approved through patient [employer]. Skin has improved, but joint symptoms are worse. She was approved through [employer] patient [employer] for Otezla, but they would not approve the Enbrel, so she has been off all medication and her joints are really bothering her. Look into Simponi aria infusions, [facility] is probably closest for her or a home infusion company. Look into insurance coverage. 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 She has asymmetric small and large joint involvement and was started on samples of Otezla by Dermatology. We were able to get approved through patient [employer]. Skin has improved, but joint symptoms are worse. Since she is already approved through [employer], going to switch from Otezla to Enbrel. Demonstrated use of Enbrel pen today and feels comfortable with idea of injection. Needs TB test before starting. 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 She has asymmetric small and large joint involvement and was started on samples of Otezla by Dermatology. We were able to get approved through patient [employer]. Tolerating well with exception of some loose [...] Type Department Care Team Description 08/28/2024 Telephone [facility] Rheumatology at [address] [phone] Jessica Madrid DO Cosentyx Infusion order [facility] 08/24/2024 11:15 AM CDT Office Visit [facility] Rheumatology at [address] [phone] Jessica Madrid DO Psoriatic arthritis (HCC) (Primary Dx); Age-related osteoporosis without current pathological fracture; Therapeutic drug monitoring; Screening for tuberculosis 08/24/2024 Documentation [facility] Medical [facility] Rheumatology at [address] [phone] Jessica Madrid DO [facility] 08/08/2024 8:50 AM CDT - 08/08/2024 11:59 PM CDT Hospital Encounter [address] [address] Psoriatic arthritis (HCC) (Primary Dx) Discharge Disposition: Discharge to home or self care 06/25/2024 Results Follow-Up [facility] Medical [facility] Rheumatology at [address] [phone] Jessica Madrid DO CBC without differential, Comprehensive metabolic panel, Erythrocyte sedimentation rate, Additional followed-up results: 2 06/13/2024 8:47 AM SAND FILLER - 06/13/2024 11:59 PM SAND FILLER Hospital Encounter [address] [address] Psoriatic arthritis (HCC) (Primary Dx); Age-related osteoporosis without current pathological fracture; Therapeutic drug monitoring Discharge Disposition: Discharge to home or self care from Last 3 Months Immunizations Immunization Administration [...] head: Medical Management 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 OTHER SURGICAL HISTORY 04/19/1981 - 04/18/1982 Cholelithiasis: [...] Myocardial infa rction; Cause of : Myocardial infarction/NC; Cause of : NC Other Mother's Brother Cancer, sto mach; Other [...] on file Legal Sex Female 12:05 PM SAND FILLER Gender Identity Female 08/03/2023 10:00 AM CDT [...] 08/24/2024 11:06 AM CDT Plan of Treatment Health Maintenance [...] for tuberculosis EGFR Routine 06/13/2024 9:17 AM SAND FILLER Psoriatic arthritis (HCC) Age-related osteoporosis without current pathological fracture Therapeutic drug monitoring CRP (ACUTE PHASE) Routine 06/13/2024 9:1 7 AM SAND FILLER Psoriatic arthritis (HCC) Age-related osteoporosis without current pathological fracture Therapeutic drug monitoring ERYTHROCYTE SEDIMENTATION RATE Routine 06/13/2024 9:17 AM SAND FILLER Psoriatic arthritis (HCC) Age-related osteoporosis without current pathological fracture Therapeutic drug monitoring COMPREHENSIVE METABOLIC PANEL Routine 06/13/2024 9:17 AM SAND FILLER Psoriatic arthritis (HCC) Age-related osteoporosis without current pathological fracture Therapeutic drug monitoring CBC WITHOUT DIFFERENTIAL Routine 06/13/2024 9:17 AM SAND FILLER Psoriatic arthritis (HCC) Age-related osteoporosis without current pathological fracture Therapeutic drug monitoring DEXA AXIAL SKELETON BONE DENSITY 1 OR MORE SITES Schedule Routine, Read Routine (OP Routine) 01/31/2021 9:21 AM CDT Asymptomatic menopausal state from Last 3 Months or Most Recently Relevant to Health Maintenance Results * TB test, quantiferon gold (08/28/2024 10:42 AM CDT) Pathologist [facility] QuantiFERON(R)-T B Gold Plus, 1 Tube NEGATIVE [...] T-lymphocytes. For additional information, please refer to https://education.Interactivo/faq/VNJ306 (This link is being provided for informational/ educational purposes only.) Blood 08/28/2024 10:4 2 AM CDT 08/28/2024 10:42 AM CDT Narrative [facility] - 08/31/2024 11:02 AM CDT FASTING:NO FASTING: NO us Jessica Madrid DO LAB BLOOD ORDERABLES Final Result [facility] [address] [phone] * (ABNORMAL) eGFR (06/13/2024 9:17 AM SAND FILLER) Pathologist [facility] eGFR 58(L) >=60 mL/min/1. 73 m2 Comment: [...] last reviewed 2021. Blood 06/13/2024 9:17 AM SAND FILLER 06/13/2024 9:21 AM S[facility] FILLER [facility] LAB BLOOD ORDERABLES Final Result Performing Organization Address [facility] de Phone Number [address] [place] [address] * Erythrocyte sedimentation rate (06/13/2024 9:17 AM SAND FILLER) [facility] Erythrocyte sedimentation rate 9 1 - 30 mm/hr Blood 06/13/2024 9:17 AM SAND FILLER 06/13/2024 9:21 AM SAND FILLER [facility] [facility] LAB BLOOD ORDERABLES Final Result Performing Organization Address [facility] de Phone Number [address] [place] [address] * CBC without differential (06/13/2024 9:17 AM SAND FILLER) [facility] WBC 4.4 3.8 - 9.9 K/cumm Hgb 13.1 11.9 - 15.5 g/dL [facility] Hct 40.4 35.6 - 45.5 % [facility] Plt 216 150 - 400 K/cumm [facility] MPV 10.4 9.1 - 12.3 fL [facility] RBC 4.32 3.90 - 5.20 M/cumm [facility] MCV 93.5 81.3 - 96.4 fL [facility] MCH 30.3 27.1 - 33.3 pg [facility] MCHC 32.4 32.3 - 35.7 g/dL [facility] RDW CV 13.7 11.1 - 14.9 % [facility] RDW SD 47.5 35.7 - 48.1 fL [facility] NRBC abs 0.00 0.00 - 0.01 K/cumm [facility] Blood 06/13/2024 9:17 AM SAND FILLER 06/13/2024 9:21 AM SAND FILLER Jessica Madrid LAB BLOOD ORDERABLES Final Result Performing Organization Address [facility]/ZIP Co de Phone Number [address] [place] [address] * CRP (acute phase) (06/13/2024 9:17 AM SAND FILLER) [facility] CRP 0.3 <=10.0 mg/L Blood 06/13/2024 9:17 AM SAND FILLER 06/13/2024 9:21 AM SAND FILLER Jessica Madrid DO LAB BLOOD ORDERABLES Final Result Performing Organization Address [facility] Co de Phone Number [address] [address] * Comprehensive metabolic panel (06/13/2024 9:17 AM SAND FILLER) Pathologist [facility] Sodium 138 135 - 145 mmol/L Potassium, pl 3.9 3.3 - 4.9 mmol/L [facility] Chloride 105 97 - 110 mmol/L [facility] CO2 24 22 - 32 mmol/L [facility] Anion gap 9 2 - 15 mmol/L [facility] BUN 12 6 - 25 mg/dL [facility] Creatinine 0.98 0.60 - 1.10 mg/dL [facility] Glucose 86 70 - 199 mg/dL [facility] Comment: Interpretive Data Fasting glucose >/= [...] 2022. Calcium 9.5 8.5 - 10.3 mg/dL [facility] Bilirubin, total 0.7 0.1 - 1.2 mg/dL [facility] Protein, pl 6.9 6.5 - 8.5 g/dL [facility] Albumin 4.2 3.5 - 5.0 g/dL [facility] Alk phos 46 40 - 130 Units/L [facility] ALT 10 7 - 45 Units/L [facility] AST 24 10 - 45 Units/L [facility] Blood 06/13/2024 9:17 AM SAND FILLER 06/13/2024 9:21 AM SAND FILLER us Jessica Madrid DO LAB BLOOD ORDERABLES Final Result [facility] [address] [facility] [place] [address] * Dexa Axial Skeleton Bone Density 1 or 2 Site (01/31/2021 9:21 AM CDT) Anatomical Region Laterality Modality Body N/A Other 01/31/2021 9:38 AM CDT Narrative 01/31/2021 9:39 AM CDT EXAM DESCRIPTION: DEXA AXIAL SKELETON BONE DENSITY 1 OR MORE SITES REASON FOR STUDY: 75 year old female with given history of asymptomatic menopausal state. Supervisor Customer Complaint Service/Model: Bumpr (S/N [id number]) CLINICAL INFORMATION: Current height: 64 inches Maximum [...] by Phillip Hollingsworth M.D., MD: Report ID: [id number] Reading Location: [id number] Procedure Note Phillip Hollingsworth MD - 01/31/2021 EXAM DESCRIPTION: DEXA AXIAL SKELETON BONE DENSITY 1 OR MORE SITES REASON FOR STUDY: 75 year old female with given history of asymptomatic menopausal state. Supervisor Customer Complaint Service/Model: [employer] SL (S/N [id number]) CLINICAL INFORMATION: Current height: 64 inches Maximum [...] by Phillip Hollingsworth M.D., MD: Report ID: [id number] Reading Location: [place] [address] Dirk Luis MD IMG DXA PROCEDURES Final Result from Last 3 Months or Most Recently Relevant to Health Maintenance Insurance MEDICARE [facility] Member Subscriber Plan / Payer (Ef fective 2020-Present) Name:Iona Fairchild Relation to Subscriber:Self Name:Iona Fairchild Payer ID:[id number] Group ID:Not on file Type:[facility] Address: [address] [facility] [place] [address] MEDICARE [employer] GENERIC Member Subscriber Plan / Payer (Ef fective 2018-Present) Name:Iona Fairchild Relation to Subscriber:Self Name:IONA FAIRCHILD Payer ID:[id number] Group ID:[id number] Type:[facility] Address: [address] [place] [address] [facility] Member Subscriber Plan / Payer (Ef fective 2021-Present) Name:Robertbebeto Iona Relation to Subscriber:Self Name:Iona Fairchild Payer ID:[id number] Group ID:Not on file Type:[facility] Address: [address] [facility] [place] [id number] MEDICARE [facility] Member Subscriber Plan / Payer ( fective 2020-Present) Name:Robertbebeto Iona Relation to Subscriber:Self Name:RobertIona tate Payer ID:[id number] Group ID:Not on file Type:[facility] Address: [address] [place] [address] [place] [address] Advance Directives For more information, please contact: [phone] * Full Code (Latest Code Status on File) Date Activated Date Inactivated Comments 07/31/2018 3:21 PM 08/01/2018 5:26 PM Care Teams Choke Setter Relationship Specialty Start Date End Date Sol Martinez NP [address] [place] [address] PCP - General Nurse Practitioner 01/05/24
== END 2024-09-05 09:47 | disposition home or self-care (01) ==
LOC: ANHIMG 09:47
PROVIDERS: PCP Nurse Practitioner Adult Health; Visit Provider Nurse Practitioner Adult Health
DX: M81.0 Age-related osteoporosis without current pathological fracture (principal); M85.852 Other specified disorders of bone density and structure, left thigh; M85.851 Other specified disorders of bone density and structure, right thigh
CPT/HCPCS: 77080

== ENCOUNTER 2025-02-19 10:45 | Outpatient (CLI) | payer MEDICARE, OTHER, SELFPAY ==
[2025-02-19 11:22] LABS: Hematocrit 41.8 % (37.0-47.0); Hemoglobin 13.2 g/dL (12.0-15.0); Immature Granulocyte Percent A 0.2 % (0-0.5); Lymphocytes Absolute Auto 2.27 K/mm3 (0.9-3.2); Mean Corpuscular HGB Conc 31.6 g/dl (32-36); Mean Corpuscular Hemoglobin 30.3 pg (26-34); Mean Corpuscular Volume 96.1 fl (80-100); Nucleated Red Blood Cells Absolute Auto 0.000 K/mm3 (0.0-0.012); Nucleated Red Blood Cells Perc 0.0 % (0.0-0.2); Platelet Count Result 238 k/mm3 (150-375); Red Blood Count 4.35 M/mm3 (4.2-5.4); White Blood Count 6.0 K/mm3 (4.5-10.0)
[2025-02-19 11:43] LABS: Alanine Aminotransferase 16 U/L (6-35); Albumin Level 4.3 g/dL (3.5-5.1); Alkaline Phosphatase 47 U/L (38-126); Anion Gap 8 mmol/L (4-12); Aspartate Amino Transferase 32 U/L (14-36); Bilirubin,Total 0.8 mg/dL (0.2-1.3); Blood Urea Nitrogen 14 mg/dL (7-17); Calcium 9.7 mg/dL (8.4-10.2); Carbon Dioxide 26 mmol/L (22-30); Chloride 105 mmol/L (98-107); Cholesterol 217 mg/dL (0-200); Estimated Glomerular Filt Rate 57; Glucose 129 mg/dL (65-110); HDL Direct 62 mg/dL; Magnesium 2.1 mg/dL (1.6-2.3); Potassium 4.6 mmol/L (3.4-5.0); Sodium 139 mmol/L (137-145); Total Protein 7.3 g/dL (6.3-8.2); Triglycerides 146 mg/dL (<150)
[2025-02-19 11:49] LABS: Hemoglobin A1C 5.4 % (<5.7)
--- OUTSIDE RECORDS SUMMARY | 2025-02-19 12:04 | XMS_ITS | Clinical Summary ---
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 Not on file [...] 9:00 AM CDT Height 162.6 cm (5' 4) 12/14/2017 9:00 AM CDT Body Mass Index 34.33 12/14/2017 9:00 AM CDT Plan of Treatment Health Maintenance Due Date Last Done Comments Hepatitis C Virus (HCV) Screening 1945 TdaP Immunization 1945 Pneumococcal Immunization (5 0+ years) (1 of 1 - PCV) 11/28/1993 Zoster Immunization (1 of 2) 11/28/1993 Medicare Initial AWV [id number] 11/17/2009 Respiratory Syncytial Virus (RSV) Immunization (Adult) (1 - 1-dose 75+ series) 11/28/2018 Influenza Immunization (#1) 2024 SARS-COV-2 Immunization ( - 2023- season) 2024 Hepatitis B Immunization Aged Out No longer eligible based on patient's age to complete this topic Human Papillomavirus (HPV) Immunization Aged Out No longer eligible b ased on patient's age to complete this topic Meningococcal Immunization (ACWY) Aged Out No longer eligible based on patient's age to complete this topic Rotavirus Immunization Aged Out No lo nger eligible based on patient's age to complete this topic Insurance MEDICARE [facility] Care Teams Ink Technician Relationship Specialty Start Date End Date Kwame Cuello DO [address] [place] [address] PCP - General Family Medicine 11/25/17
--- OUTSIDE RECORDS SUMMARY | 2025-02-19 12:05 | XMS_ITS | Encounter Summary ---
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 Gender Identity Female 08/03/2023 10:00 AM CDT Sexual Orientation Straight 08/03/2023 10 :00 AM CDT documented as of this encounter Plan of Treatment Not on file documented as of this encounter Procedures Procedure Name Priority Date/Time Associated Diagnosis Comments SCAN - LABS 08/25/2024 9:54 PM CDT documented in this encounter Results * SCAN - LABS (08/25/2024 9:54 PM CDT) us Provider Scanning Final Result documented in this encounter Visit Diagnoses Not on filedocumented in this encounter Care Teams Equipment Validation Specialist Relationship Specialty Start Date End Date Sol Martinez NP [address] [place] [address] PCP - General Nurse Practitioner 01/05/24 documented as of this encounter
--- OUTSIDE RECORDS SUMMARY | 2025-02-19 12:05 | XMS_ITS | Clinical Summary ---
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 Contact our office for any signs of infection so we can advise regarding holding cosentyx. Age-related osteoporosis wit hout current pathological fracture 05/26/2023 Assessment & Plan (08/23/2024 3:39 PM CDT): Started on Alendronate weekly through PCP (05/2023). PCP managing. Assessment & Plan (05/24/2024 7:19 AM TEENAGE PROGRAM DIRECTOR): Started on Alendronate weekly through PCP (05/2023). PCP managing. Assessment & Plan (01/05/2024 7:18 AM CDT): Started on Alendronate weekly through PCP (05/2023). PCP managing. Assessment & Plan (09/02/2023 12:29 PM CDT): Started on Alendronate weekly through PCP (05/2023). PCP managing. Assessment & Plan (05/26/2023 12:07 PM TEENAGE PROGRAM DIRECTOR): New diagnosis since last visit. Started on Alendronate weekly through PCP (05/2023). Therapeutic drug monitoring 05/26/2023 Assessment & Plan (08/28/2024 9:56 AM CDT): Patient is on immunosuppressive medication requiring intensive lab monitoring for medication safety. Sign ROR from PCP for recent labs. Assessment & Plan (05/24/2024 11:50 AM TEENAGE PROGRAM DIRECTOR): Patient is on immunosuppressive medication requiring intensive lab monitoring for medication safety. Assessment & Plan (01/05/2024 7:18 AM CDT): Labs from PCP reviewed. No evidence of medication toxicity. Assessment & Plan (09/02/2023 12:30 PM CDT): Labs from PCP reviewed. No evidence of medication toxicity. Assessment & Plan (05/26/2023 12:08 PM TEENAGE PROGRAM DIRECTOR): Check labs for medication monitoring. Sinusitis 05/26/2023 Assessment & Plan (05/26/2023 12:09 PM TEENAGE PROGRAM DIRECTOR): Cough, but lungs clear. Sinus pressure. Rx given for azithromycin. 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 She has asymmetric small and large joint involvement and was started on samples of Otezla by Dermatology. We were able to get approved through patient [employer]. Skin has improved, but joint symptoms are worse. Recently started on Simponi aria infusions, not noticing any improvement. Will switch to Cosentx. 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 She has asymmetric small and large joint involvement and was started on samples of Otezla by Dermatology. We were able to get approved through patient [employer]. Skin has improved, but joint symptoms are [...] were able to get approved through patient [employer]. Skin has improved, but joint symptoms are worse. She was approved through [employer] for Otezla, but they would not approve the Enbrel, so she has been off all medication and her joints are really bothering her. Look into [facility] Shopa infusions, [facility] is probably closest for her or a home infusion company. Look into insurance coverage. 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 She has asymmetric small and large joint involvement and was started on samples of Otezla by Dermatology. We were able to get approved through patient [employer]. Skin has improved, but joint symptoms are worse. Since she is already approved through [employer], going to switch from Otezla to Enbrel. Demonstrated use of Enbrel pen today and feels comfortable with idea of injection. Needs TB test before starting. 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 She has asymmetric small and large joint involvement and was started on samples of Otezla by Dermatology. We were able to get approved through patient [employer]. Tolerating well with exception of some loose [...] Encounters Date Type Department Care Team Description 11/30/2024 11:30 AM CDT Office Visit [facility] Rheumatology at [address] [id number] Jenna Victor NP Psoriatic arthritis (HCC) (Primary Dx); Primary osteoarthritis involving multiple joints; Immunosuppression due to drug therapy from Last 3 Months Immunizations Immunization Administration [...] head: Medical Management 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 Machuca/physical therapist center manager OTHER SURGICAL HISTORY 04/19/1981 - 04/18/1982 Cholelithiasis: [...] Asthma & allerg ies Hx Other Medical 2017 Pelvic prolapse Sleep apnea Family History Medical History Relation Name Comments Other Brother 1 jean pierre Alive and well; Other Brother 2 lenora pacemaker/defib rillator; Hypertension Brother 3 ximena Hypertension; Hypertension Brother 4 Hypertension; Other Father killed in WWII; /Killed in WWII; paternal side unknown; Diabetes Maternal Grandmother Diabete s; Heart attack Mother Myocardial infa rction; Cause of : Myocardial infarction/PA; Cause of : PA Other Mother's Brother Cancer, sto mach; Other [...] on file Legal Sex Female 12:05 PM TEENAGE PROGRAM DIRECTOR Gender Identity Female 08/03/2023 10:00 AM CDT Sexual Orientation Straight 08/03/2023 10 :00 AM CDT Obstetrics History Para Term AB IAB SAB Ectopic Multiple Livin g Live Births 2 2 2 Date Outcome GA Total Labor Labor/2nd/3rd Weight Sex Type Anes PTL Yessica A1 A5 Name Clin Term Term Last Filed Vital Signs Vital Sign Reading Time Taken Comments Blood Pressure 136/80 11/30/2024 11:11 AM CDT Pulse 72 11/30/2024 11:11 AM CDT Temperature 36.4 C (97.6 F) 11/30/2024 11:11 AM CDT Respiratory Rate 20 11/30/2024 11:11 AM CDT Oxygen Saturation 99% 11/30/2024 11:11 AM CDT Inhaled Oxygen Concentration - - Weight 80.7 kg (178 lb) 11/30/2024 11:11 AM CDT Height 162.6 cm (5' 4) 11/30/2024 11:11 AM CDT Body Mass Index 30.55 11/30/2024 11:11 AM CDT Plan of Treatment Health Maintenance Due Date Last Done Comments Fall Risk Assessment 1945 Hepatitis B Screening 11/28[birth year]1961 DTaP/Tdap/Td Vaccine (1 - Tdap) 11/12/2010 1 Well Visit 65+ 12/23/2017 12/23/2016 Depression Screening 08/01/2019 07/31/2018, 12/24/19 17 Osteoporosis Screening-Bone Density Scan 01/31/2023 01/31/2021, 12/19/2009 Zoster Vaccine (2 of 2) 03/22/2023 01/25/2023 Influenza Vaccine (#1) 2024 8, 01/30/2018, 01/18/2017, Additional history exists Pneumococcal vaccine 65+ Completed 016, 11/11/2010, 11/11/2010 Procedures Procedure Name Priority Date/Time Associated Diagnosis Comments DEXA AXIAL SKELETON BONE DENSITY 1 OR MORE SITES Schedule Routine, Read Routine (OP Routine) 01/31/2021 9:21 AM CDT Asymptomatic menopausal state from Last 3 Months or Most Recently Relevant to Health Maintenance Results * Dexa Axial Skeleton Bone Density 1 or 2 Site (01/31/2021 9:21 AM CDT) Anatomical Region Laterality Modality Body N/A Other 01/31/2021 9:38 AM CDT Narrative 01/31/2021 9:39 AM CDT EXAM DESCRIPTION: DEXA AXIAL SKELETON BONE DENSITY 1 OR MORE SITES REASON FOR STUDY: 75 year old female with given history of asymptomatic menopausal state. 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 MD: Report ID: [id number] Reading Location: [id number] Procedure Note Phillip Hollingsworth MD - 01/31/2021 EXAM DESCRIPTION: DEXA AXIAL SKELETON BONE DENSITY 1 OR MORE SITES REASON FOR STUDY: 75 year old female with given history of asymptomatic menopausal state. Colored Leather Setter/Model: [employer] (S/N [id number]) CLINICAL INFORMATION: Current height: 64 inches Maximum [...] by Phillip Hollingsworth M.D. MD: Report ID: [id number] Reading Location: [place] [address] [place] Dirk Luis MD IMG DXA PROCEDURES Final Result from Last 3 Months or Most Recently Relevant to Health Maintenance Insurance MEDICARE [facility] MEDICARE [employer] [place] MEDICARE [place] [id number] Advance Directives For more information, please contact: [phone] * Full Code (Latest Code Status on File) Date Activated Date Inactivated Comments 07/31/2018 3:21 PM 08/01/2018 5:26 PM Care Teams Home Performance Laborer Relationship Specialty Start Date End Date Sol Martinez NP [address] [place] [address] PCP - General Nurse Practitioner 01/05/24
[2025-02-19 12:40] LABS: Vitamin B12 999.0 pg/mL (239-931)
== END 2025-02-19 10:46 | disposition home or self-care (01) ==
LOC: ANHLAB 10:50
PROVIDERS: PCP Nurse Practitioner Adult Health; Visit Provider Nurse Practitioner Adult Health
DX: R79.89 Other specified abnormal findings of blood chemistry (principal); Z79.899 Other long term (current) drug therapy; I10 Essential (primary) hypertension; E53.8 Deficiency of other specified B group vitamins; R73.03 Prediabetes
CPT/HCPCS: 36415; 80053; 80061; 82306; 82607; 83036; 83735; 85025